=== PATIENT | male | born 1985 | race Caucasian/White ===

== ENCOUNTER 2019-11-01 11:49 | Outpatient (CLI) | payer OTHER, SELFPAY ==
[2019-11-01 13:13] LABS: Free T4 Free Thyroxine 0.97 ng/mL (0.78-2.19)
== END 2019-11-01 11:50 | disposition home or self-care (01) ==
PROVIDERS: PCP Emergency Medicine; Visit Provider Emergency Medicine
DX: R94.6 Abnormal results of thyroid function studies (principal)
CPT/HCPCS: 36415; 84439; 84443

== ENCOUNTER 2019-12-25 14:05 | Emergency (ER) | payer OTHER, SELFPAY ==
--- NOTE | ~2019-12-25 | XR_ITS ---
EXAMINATION: XR chest 1V portable INDICATION: Cough and fever TECHNIQUE: Portable AP chest at 1430 hours COMPARISON: 11/22/2019 FINDINGS: The lungs are free of acute opacities. There is no pleural effusion or pneumothorax. The ca rdiomediastinal silhouette is normal. The visualized bones and soft tissues are unremarkable. IMPRESSION: 1. No acute cardiopulmonary abnormality. Reviewed, dictated and finalized at location B.
[2019-12-25 14:15] VITALS: PULSE 164; RESP 16; TEMP 36.1; O2SAT 97
[2019-12-25 14:18] VITALS: BP 192/113
[2019-12-25 14:20] VITALS: PULSE 145
--- NOTE | 2019-12-25 14:22 | ECG_ITS ---
Measurements Intervals [place] Rate: 144 P: 3 MS: 131 QRS: -6 QRSD: 100 T: 31 QT: 282 QTc: 437 Interpretive Statements SINUS TACHYCARDIA INCOMPLETE RIGHT BUNDLE BRANCH BLOCK BORDERLINE R WAVE PROGRESSION, ANTERIOR LEADS ABNORMAL ECG Electronically Signed On 12-25-2019 14:36:47 CDT by Jason Badillo D.O.
--- NOTE | 2019-12-25 14:25 | ED.SOB ---
HPI - SOB/Dyspnea General Chief Complaint: Shortness of Breath/Dyspnea <Richard Marin PA-C - Last Filed: 12/25/19 15:51> Stated Complaint: cough, I feel hot <Richard Marin PA-C - Last Filed: 12/25/19 15:51> Time Seen by Provider: 12/25/19 14:07 <Richard Marin PA-C - Last Filed: 12/25/19 15:51> Source: patient <Richard Marin PA-C - Last Filed: 12/25/19 15:51> Mode of arrival: ambulatory <Richard Marin PA-C - Last Filed: 12/25/19 15:51> Limitations: no limitations <Richard Marin PA-C - Last Filed: 12/25/19 15:51> History of Present Illness HPI Narrative: Patient is a 34-year-old male who presents to emergency department for evaluation of cough congestion and not feeling well that is been present for 2 days was sent by primary care. 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 Patient denies vomiting diarrhea chest pain or dyspnea. Patient with history of hypertension thyroid disease and notes he has been compliant with his medications. Patient on arrival is in no distress. Patient has not taken anything for his symptoms <Richard Marin PA-C - Last Filed: 12/25/19 15:51> Related Data Home Medications: Home Medications Medication Instructions Recorded Confirmed amlodipine 12/25/19 levothyroxine 12/25/19 lisinopril 12/25/19 <Richard Marin PA-C - Last Filed: 12/25/19 15:51> Allergies/Adverse Reactions: Allergies Allergy/AdvReac Type Severity Reaction Status Date / Time No Known Allergies Allergy Verified 12/25/19 14:18 <Richard Mrain PA-C - Last Filed: 12/25/19 15:51> Review of Systems Review of Systems: All systems reviewed & are unremarkable except as noted in HPI and below <Richard Marin PA-C - Last Filed: 12/25/19 15:51> PMFSH Past Medical History Medical History: Medical History (Updated 12/25/19 @ 15:50 by Richard Marin PA-C) Hypertension Hypothyroidism Obesity <NORA Joyce Last Filed: 12/25/19 15:51> Family History Family History: Family History (System 11/22/19 @ 13:09 by January Lew) Grandparent Family history of pancreatic cancer Family history of thyroid disease Diabetes mellitus Mother Family history of thyroid disease Family history of multiple sclerosis Family history of lupus erythematosus Father Family history of alcoholism Family history of lupus erythematosus Other Hypertension <Richard Marin PA-C - Last Filed: 12/25/19 15:51> Social History Social History: Social History Smoking status: Never smoker Alcohol intake: current <Richard Marin PA-C - Last Filed: 12/25/19 15:51> Exam Narrative: Exam Narrative: GENERAL: Well-appearing, obese, and in no acute distress. HEAD: Normocephalic, atraumatic. EYES: PERRLA and EOMI. ENT: Nares clear, no rhinorrhea or epistaxis. Mucous membranes moist. Oropharynx without tonsillar hypertrophy exudate or other lesions. NECK: Supple. No adenopathy or masses. No carotid bruits or JVD CHEST: Clear to auscultation. No respiratory distress. No wheezes rales or rhonchi HEART: Tachycardic rate and regular rhythm. No murmur heard. Normal peripheral pulses. ABDOMEN: Soft, nontender, nondistended, normal active bowel sounds. EXTREMITIES: Normal range of motion. No edema. SKIN: Warm, dry, no rash. NEURO: No focal deficits. Alert and oriented x3. Cranial nerves II through XII grossly intact PSYCH: Normal mood and affect. <Richard Marin PA-C - Last Filed: 12/25/19 15:51> Course Course Emergency Course: Patient in the room at this time noting that he is feeling better noting that he wants to sign out AMA patient has been asked to stay given that he has findings concerning for dehydration and sepsis pulmonary embolism and that and leaving risks of patient notes that he has to leave to go meet his
[2019-12-25] MEDS: SODIUM CHLORIDE 0.9% IV 1,000 ML 999 ML IV CONT (14:38)
[2019-12-25 15:01] LABS: Hemoglobin 14.8 g/dL (14.0-18.0); Mean Corpuscular HGB Conc 32.9 g/dl (32-36); Mean Corpuscular Hemoglobin 28.5 pg (26-34); Mean Corpuscular Volume 86.7 fl (80-100); Platelet Count Result 499 k/mm3 (150-375); Red Blood Count 5.19 M/mm3 (4.6-6.20); Red Cell Distribution Width 14.3 % (11.5-14.5)
[2019-12-25 15:13] LABS: Lactic Acid Reflex 5.6 mmol/L (0.7-2.1)
[2019-12-25 15:15] LABS: Alanine Aminotransferase 56 U/L (4-50); Alkaline Phosphatase 89 U/L (38-126); Anion Gap 21.8 mmol/L (7-16); Aspartate Amino Transferase 57 U/L (17-59); Bilirubin,Total 0.2 mg/dL (0.2-1.3); Blood Urea Nitrogen 12 mg/dL (9-20); CRP < 0.5 mg/dL (<1.0); Carbon Dioxide 21 mmol/L (22-30); Chloride 107 mmol/L (98-107); Estimated CRCL calculation 151 ml/min; Estimated Glomerular Filt Rate > 60; Glucose 115 mg/dL (75-110); Lipase 69 U/L (23-300); Potassium 3.8 mmol/L (3.4-5.0); Sodium 146 mmol/L (137-145)
[2019-12-25 15:17] VITALS: TEMP 36.8
[2019-12-25 15:19] LABS: INR 1.1; Prothrombin Time 13.7 Seconds (11.1-14.7)
[2019-12-25 15:20] LABS: Partial Thromboplastin Time 26.2 SECONDS (22.3-36.8)
[2019-12-25 15:22] LABS: D Dimer 1.66 ug/mL (<0.48)
[2019-12-25 15:24] LABS: NT Pro B Type Natriuretic Pept 25 PG/ML (5-100); Troponin I < 0.012 ng/mL (0.000-0.034)
[2019-12-25 15:25] LABS: Monocytes Percent Manual 2 % (3-9); Neutrophils Percent Manual 52 % (46-73); Platelet Estimate Increased (Adequate); Total Cells Counted 100
--- NOTE | 2019-12-25 15:33 | PC.NURSE ---
Patient wishing to sign out AMASanthosh made aware
[2019-12-25 15:50] VITALS: PULSE 123; RESP 18; O2SAT 98
[2019-12-25 17:58] LABS: Reflex Lactic Acid Yes or No Add Lactic
== END 2019-12-25 15:52 | disposition left against medical advice (07) ==
PROVIDERS: Emergency Medicine Emergency Medical Services; Emergency Provider Emergency Medicine; PCP Emergency Medicine
DX: A41.9 Sepsis, unspecified organism (principal); E86.0 Dehydration; R79.89 Other specified abnormal findings of blood chemistry; I10 Essential (primary) hypertension; E03.9 Hypothyroidism, unspecified; E66.9 Obesity, unspecified; Z68.41 Body mass index [BMI] 40.0-44.9, adult; R00.0 Tachycardia, unspecified; I45.10 Unspecified right bundle-branch block; R94.31 Abnormal electrocardiogram [ECG] [EKG]; Z20.828 Contact with and (suspected) exposure to other viral communicable diseases
CPT/HCPCS: 36415; 71045; 80053; 83605; 83690; 83880; 84443; 84484; 85025; 85380; 85610; 85730; 86140; 87040; 93005; 96365; 99284; J0131; J7030

== ENCOUNTER 2019-12-29 20:58 | Inpatient (IN) | payer OTHER, SELFPAY ==
--- NOTE | ~2019-12-29 | US_ITS ---
EXAMINATION: US venous doppler LE EXAM DATE: 12/30/2019 13:32 INDICATION: Shortness of breath. TECHNIQUE: Multiple grayscale, color flow and Doppler images of the lower extremity deep venous syste ms bilaterally were obtained and reviewed. There is no prior study for comparison. FINDINGS: Right side: The right common femoral, femoral and profunda veins demonstrate normal color flow, respi ratory variation, augmentation and compressibility. Compressibility, color flow confirmed within the right popliteal, posterior tibial, peroneal, and greater saphenous veins. Left side: The left common femoral, femoral and profunda veins demonstrate normal color flow, respira tory variation, augmentation and compressibility. Compressibility, color flow confirmed within the l eft popliteal, posterior tibial, peroneal, and greater saphenous veins. IMPRESSION: 1. No lower extremity deep venous thrombosis bilaterally. Reviewed, dictated and finalized at location A.
--- NOTE | ~2019-12-29 | XR_ITS ---
EXAMINATION: XR chest 1V portable 12/29/2019 21:34 INDICATION: Shortness of breath and chest pain PROCEDURE: AP portable chest COMPARISON: Comparison to multiple prior studies sequentially, with oldest reviewed study dated 05/01. FINDINGS: The lungs are clear. The cardiomediastinal silhouette is within normal limits. There are no pleural effusions. There is no pneumothorax suspected. IMPRESSION: 1: NO ACUTE CARDIOPULMONARY DISEASE. Reviewed, dictated and finalized at location A.
--- NOTE | ~2019-12-29 | CT_ITS ---
EXAMINATION: CTA chest PE protocol DATE: 12/29/2019 22:55 CDT INDICATION: Shortness of breath. Chest pain. TECHNIQUE: Computed tomographic angiography (CTA) of the chest was performed with 100 mL Omnipaque-35 0 intravenous contrast. The dose-length product was 1078.65 mGy-cm. Maximum intensity projection 3D-r econstructions of the aorta and other arteries were constructed by the technologist on a separate wor kstation. Automated exposure control and iterative reconstruction technique were employed. COMPARISON: None. FINDINGS: The study is suboptimal for evaluation of peripheral pulmonary embolism due to contrast jamie us timing. No large central pulmonary embolism. Heart size normal. No significant pleural or pericard ial effusion. No thoracic lymphadenopathy. There is gynecomastia. No endobronchial lesions. No focal airspace consolidation. No pulmonary nodules or masses. Fatty infiltration of the liver. IMPRESSION: 1. No large central pulmonary embolism. Study limited for evaluation of peripheral pulmonary arteries . 2: No acute cardiopulmonary disease. Reviewed, dictated and finalized at location A. IMPRESSION: 1. No large central pulmonary embolism. Study limited for evaluation of periphe ral pulmonary arteries. 2: No acute cardiopulmonary disease.
[2019-12-29 20:56] VITALS: BP 145/109; PULSE 89; RESP 22; TEMP 35.6; O2SAT 96
--- NOTE | 2019-12-29 21:16 | ECG_ITS ---
Measurements Intervals [place] Rate: 129 P: 42 [place]: 144 QRS: 6 QRSD: 93 T: 34 QT: 306 QTc: 449 Interpretive Statements SINUS TACHYCARDIA ABNORMAL ECG Electronically Signed On 12-30-2019 6:50:22 CDT by Jason Badillo D.O.
[2019-12-29] MEDS: ONDANSETRON INJ 4 MG/2 ML VIAL (21:23)
[2019-12-29 21:26] VITALS: PULSE 138
[2019-12-29 21:28] LABS: Basophils Percent Auto 0.2 % (0.2-1.2); Eosinophils Percent Auto 0.1 % (0-4.4); Hematocrit 44.8 % (42.0-52.0); Hemoglobin 14.7 g/dL (14.0-18.0); Immature Granulocyte Absolute 0.03 K/mm3 (0.00-0.031); Immature Granulocyte Percent A 0.2 % (0-0.5); Lymphocytes Absolute Auto 0.79 K/mm3 (0.9-3.2); Lymphocytes Percent Auto 6.2 % (18.3-44.2); Mean Corpuscular HGB Conc 32.8 g/dl (32-36); Mean Corpuscular Hemoglobin 28.2 pg (26-34); Mean Corpuscular Volume 85.8 fl (80-100); Mean Platelet Volume 9.3 fl (7.4-10.4); Monocytes Absolute Auto 0.7 K/mm3 (0.1-0.6); Monocytes Percent Auto 5.1 % (2.6-8.5); Neutrophils Absolute Auto 11.2 K/mm3 (1.3-6.7); Neutrophils Percent Auto 88.2 % (45.5-73.1); Platelet Count Result 353 k/mm3 (150-375); Red Blood Count 5.22 M/mm3 (4.6-6.20); Red Cell Distribution Width 14.4 % (11.5-14.5); White Blood Count 12.7 K/mm3 (4.5-10.0)
--- NOTE | 2019-12-29 21:34 | ED.CHESTPAIN ---
HPI - Chest Pain General Chief Complaint: Chest Pain Stated Complaint: CP Time Seen by Provider: 12/29/19 21:17 Source: patient Mode of arrival: EMS History of Present Illness HPI narrative: This patient is 34 year old male with history of hypertension who presents for evaluation chest pain and shortness of breath. He was evaluated in ED 4 days ago for chest pain. He states he was told he has a PE but he left AMA. PAtient actually had an elevated d dimer and they wanted to perform CT and admit to hospital but patient refused. He returned today because 2 hours ago he developed crushing substernal chest pain with sob . EMS gave patient nitro glycer and ASA. Just after arrival patient became tachycardic and diaphoretic. He denies history of PE, DVT. Related Data Home Medications Medication Instructions Recorded Confirmed amlodipine 10 mg PO DAILY 12/25/19 12/30/19 levothyroxine 50 mcg PO DAILY 12/25/19 12/30/19 lisinopril 40 mg PO DAILY 12/25/19 12/30/19 Allergies Allergy/AdvReac Type Severity Reaction Status Date / Time No Known Allergies Allergy Verified 12/29/19 21:45 Review of Systems Review of Systems: All systems reviewed & are unremarkable except as noted in HPI and below Constitutional: Constitutional: Denies chills and Denies fever(s) Cardiovascular: Cardiovascular: Reports chest pain Respiratory: Respiratory: Denies cough, Reports dyspnea and Denies wheezing Gastrointestinal: Gastrointestinal: Denies abdominal pain, Denies nausea and Denies vomiting PMFSH Past Medical History Medical History Hypertension Hypothyroidism Obesity Family History Family History Grandparent Family history of pancreatic cancer Family history of thyroid disease Diabetes mellitus Mother Family history of thyroid disease Family history of multiple sclerosis Family history of lupus erythematosus Father Family history of alcoholism Family history of lupus erythematosus Other Hypertension Social History Social History Smoking status: Never smoker Second hand tobacco smoke exposure: Yes Alcohol intake: current Drinks per week: 2 Substance use: never Substance use type: does not use Spiritual care concerns: No Exam Const: General: alert, diaphoretic and ill appearing acutely Orientation/consciousness: patient oriented x3 HENMT: Head: normocephalic and atraumatic General nose exam: Normal nares present Face and sinus: face symmetric Mouth: Yes lip normal and Yes moist mucous membranes Throat: posterior oropharynx normal Eyes: Pupils: Equal, round and reactive pupils present EOM: EOMs intact bilaterally Chest: Chest palpation & inspection: normal inspection of the chest Resp: Effort & Inspection: normal respiratory effort and no retractions Auscultation: clear to auscultation bilaterally and no wheezes Cardio: Rate: tachycardic Rhythm: regular rhythm Heart sounds: no murmurs GI: GI Palp: Yes Soft to palpation, No Tenderness to palpation present (GI) and No Guarding due to palpation present (GI) Auscultation: normal bowel sounds Back/Spine/Pelvis: Back: no CVA tenderness Neuro: General: patient oriented x3 and moves all extremities Course Course Emergency Course: Patient presented to ER with chest, nausea and shortness of breath. He reported that he was diagnosed with PE but he signed out AMA 4 dyas ago. IN ER patient was diaphoretic, tachycardic and hypertensive. Patient was hydrated for tachycardia and lactic acidosis. A CTA was performed but no large PE seen. He continue to have chest pain and sob. No ischemia on EKG or elevated troponin. Patient admitted for further evaluation of metabolic acidosis and symptom. No infectious source found. Patient was given ativan and labetolol prior to admission. His
[2019-12-29] MEDS: ENOXAPARIN 120 MG/0.8 ML SYRINGE 130 MG SUB-Q (22:05)
[2019-12-29 22:08] LABS: INR 1.2; Prothrombin Time 14.6 Seconds (11.1-14.7)
[2019-12-29 22:29] LABS: Blood Urea Nitrogen 7 mg/dL (9-20); Calcium 8.3 mg/dL (8.4-10.2); Carbon Dioxide 9 mmol/L (22-30); Chloride 104 mmol/L (98-107); Estimated CRCL calculation 150 ml/min; Estimated Glomerular Filt Rate > 60; Glucose 136 mg/dL (75-110); Sodium 136 mmol/L (137-145)
[2019-12-29 22:41] LABS: NT Pro B Type Natriuretic Pept 26 PG/ML (5-100); Troponin I < 0.012 ng/mL (0.000-0.034)
[2019-12-29 23:11] LABS: Alveolar/Arterial O2 Gradient 57.9 mmHg; Base Excess ABG -13.3 mEq/l (+/-2.0); Carboxyhemoglobin 0.5 % THb (0-2.0); Fractional Inspired Oxygen 32 %; HCO3 ABG 11.2 mEq/l (22.0-26.0); Methemoglobin ABG 0.3 %THb (0-1.5); Oxygen Content ABG 20.1 %vol (16.0-22.0); Oxygen Saturation ABG 98.6 % (95.0-100.0); Oxyhemoglobin 97.3 % THb (90.0-100.0); PO2 ABG 142.4 mmHg (80.0-100.0); PO2 FiO2 Ratio Arterial Blood 4.45 %; Reduced Hemoglobin 1.9 %THb (0-5.0); Total Hemoglobin 14.5 g/dL (12.0-18.0); pH ABG 7.292 (7.350-7.450)
[2019-12-29 23:13] LABS: Device NASAL CANNULA; Modified Allen's Test Pass; PCO2 ABG 23.8 mmHg (35.0-45.0); Site Drawn LEFT RADIAL
[2019-12-29 23:24] LABS: Lactic Acid Reflex 3.9 mmol/L (0.7-2.1)
[2019-12-29] MEDS: PANTOPRAZOLE SODIUM IV 40 MG VIAL IV PUSH (23:25)
[2019-12-29] MEDS: ONDANSETRON INJ 4 MG/2 ML VIAL IV PUSH (23:25)
--- NOTE | 2019-12-29 23:32 | PC.NURSE ---
Called lab to add on Hepatic
[2019-12-29 23:43] LABS: Ethanol 76 mg/dL (<10)
[2019-12-29 23:57] LABS: Alanine Aminotransferase 75 U/L (4-50); Albumin Level 4.9 g/dL (3.5-5.1); Alkaline Phosphatase 75 U/L (38-126); Aspartate Amino Transferase 81 U/L (17-59); Bilirubin,Total 0.7 mg/dL (0.2-1.3); CRP < 0.5 mg/dL (<1.0)
[2019-12-30] VITALS (16 sets, daily range): BP systolic 157–191; BP diastolic 85–113; PULSE 76–118; RESP 16–22; TEMP 36.3–37.4; O2SAT 93–100; BMI 43.2
[2019-12-30 00:21] LABS: Amphetamine Screen Urine Negative (Negative); Barbiturate Screen Urine Negative (Negative); Benzodiazepines Screen Urine Negative (Negative); Cannabinoid Screen Urine Negative (Negative); Cocaine Screen Urine Negative (Negative); Methadone Screen Urine Negative (Negative); Opiate Screen Urine Negative (Negative); Phencyclidine Screen Urine Negative (Negative)
[2019-12-30 00:33] LABS: Add Urine Microscopic? YES; Appearance Urine Clear (Clear); Bilirubin Urine Negative (Negative); Blood Urine Negative (Negative); Color Urine Straw (Yellow); Glucose Urine UA Negative (Negative); Ketones Urine 2+ mg/dL (Negative); Leukocyte Esterase Ur Negative LEU/UL (Negative); Mucus Urine Rare /lpf; Nitrate Urine Negative (Negative); Protein Urine 3+ mg/dL (Negative); Squamous Epithelial Cell Urine Rare /hpf (Few); Urobilinogen Urine Negative mg/dL (<2.0); WBC Urine 0-3 /hpf
[2019-12-30 00:38] LABS: Specific Grav Ur 1.055 (1.001-1.035)
[2019-12-30] MEDS: LABETALOL HCL INJ 100 MG/20 ML VIAL 20 MG IV PUSH (00:39)
[2019-12-30 01:16] LABS: Lipase 107 U/L (23-300)
[2019-12-30 02:04] LABS: Troponin I 0.016 ng/mL (0.000-0.034)
[2019-12-30 02:06] LABS: Reflex Lactic Acid Yes or No Add Lactic
--- NOTE | 2019-12-30 02:35 | ADMGEN ---
This patient, Andrea Marte, was admitted to Intensive Care Unit-1 at 0205. Patient/family oriented to hospital policies and general routines including ID bracelet, bed and alarms, visiting hours, pain management, procedures, bathroom and other care routines, personal items, smoking policy, room service/diet, and visiting hours. Valuables list has been completed. Information on how to activate the Rapid Response Team has been discussed. Patient/Family are encouraged to report perceived risks to care and to ask questions if they do not understand what they are told or what they should do.
[2019-12-30 03:08] LABS: Lactic Acid 1.8 mmol/L (0.7-2.1)
--- NOTE | 2019-12-30 03:57 | PM.IMHP ---
H&P: HPI History of Present Illness Date/Time: 12/30/19 03:57 Chief complaint: uncontrolled hypertension, metabolic acidosis Narrative: This is a 34 year old male with known HTN and hypothyroidism who presented to the hospital earlier this evening with chest pain and shortness of breath. The patient has had ongoing shortness of breath for the past 5 days and was evaluated in the ER approximately 4 days ago and found to have an elevated lactic acid at that time. He signed out of the hospital AGAINST MEDICAL ADVICE at that time. Tonight he complains of nausea, vomiting, a sporadic nonproductive cough, midsternal chest pain and malaise. He doesn't think that he has had fever or chills. The patient believed that he was told four days ago that he had a PE. Tonight in the ER he underwent CTA Chest which was negative for any large acute pulmonary embolism. The patient was found to again have an elevated lactic acid which was initially 5.6. Routine labs demonstrated a metabolic acidosis with elevated anion gap. ABG demonstrated respiratory compensation. The patient was placed on oxygen in the ER and treated with 4 liters of NS IV and aspirin. Troponin have been negative x 3. On my encounter with the patient he continues to complain of nausea and malaise. He denies any sore throat, abdominal pain, dysuria, hematuria, rashes, diarrhea, open wounds or focal neurological symptoms. The patient works in our [employer] department but otherwise denies any sick contacts. The patient was swabbed for COVID-19 in the ER tonight. He denies any recent antibiotic use or new medications. No other complaints. Review of Systems Review of Systems: All systems reviewed & are unremarkable except as noted in HPI and below PMFSH Past Medical History Medical History Hypertension Hypothyroidism Obesity Family History Family History Grandparent Family history of pancreatic cancer Family history of thyroid disease Diabetes mellitus Mother Family history of thyroid disease Family history of multiple sclerosis Family history of lupus erythematosus Father Family history of alcoholism Family history of lupus erythematosus Other Hypertension Social History Social History Smoking status: Never smoker Second hand tobacco smoke exposure: Yes Alcohol intake: current Drinks per week: 2 Substance use: never Substance use type: does not use Spiritual care concerns: No Meds Home Medications and Allergies Home Medications Medication Instructions Recorded Confirmed Type amlodipine 10 mg PO DAILY 12/25/19 12/30/19 History levothyroxine 50 mcg PO DAILY 12/25/19 12/30/19 History lisinopril 40 mg PO DAILY 12/25/19 12/30/19 History Allergies Allergy/AdvReac Type Severity Reaction Status Date / Time No Known Allergies Allergy Verified 12/29/19 21:45 Vital Signs Vital Signs - 24 hr 12/29/19 20:56 12/29/19 21:26 12/30/19 00:39 Temperature 35.6 C L Pulse Rate 89 138 H 111 H Respiratory Rate 22 H Blood Pressure 145/109 H 191/113 H Pulse Oximetry 96 12/30/19 02:19 12/30/19 02:20 12/30/19 02:36 Temperature 37.4 C Pulse Rate 95 99 107 H Respiratory Rate 18 19 Blood Pressure 170/95 H 164/98 H Pulse Oximetry 100 97 12/30/19 03:46 Temperature Pulse Rate 103 H Respiratory Rate 19 Blood Pressure 188/109 H Pulse Oximetry 98 Exam Const: General: cooperative, awake, diaphoretic, ill appearing, tired appearing and uncomfortable Nutritional Appearance: obese morbidly obese Orientation/consciousness: oriented to person HENMT: Head: normal to inspection General nose exam: Normal external nose present Face and sinus: normal facial exam Mouth: Yes Normal oral and palatal mucosa present and Yes oropharynx normal Eyes: Pupils: Equal, round a
[2019-12-30 05:11] LABS: Basophils Percent Auto 0.1 % (0.2-1.2); Hematocrit 36.3 % (42.0-52.0); Hemoglobin 11.9 g/dL (14.0-18.0); Immature Granulocyte Absolute 0.04 K/mm3 (0.00-0.031); Immature Granulocyte Percent A 0.4 % (0-0.5); Lymphocytes Absolute Auto 1.11 K/mm3 (0.9-3.2); Lymphocytes Percent Auto 11.7 % (18.3-44.2); Mean Corpuscular HGB Conc 32.8 g/dl (32-36); Mean Corpuscular Hemoglobin 28.4 pg (26-34); Mean Corpuscular Volume 86.6 fl (80-100); Mean Platelet Volume 8.7 fl (7.4-10.4); Monocytes Absolute Auto 0.8 K/mm3 (0.1-0.6); Monocytes Percent Auto 8.4 % (2.6-8.5); Neutrophils Absolute Auto 7.5 K/mm3 (1.3-6.7); Neutrophils Percent Auto 79.4 % (45.5-73.1); Platelet Count Result 202 k/mm3 (150-375); Red Blood Count 4.19 M/mm3 (4.6-6.20); Red Cell Distribution Width 14.5 % (11.5-14.5); White Blood Count 9.5 K/mm3 (4.5-10.0)
[2019-12-30] MEDS: hydrALAZINE HCL 20 MG/ML VIAL 10 MG IV PUSH ×2 (05:14→14:23)
[2019-12-30] MEDS: SODIUM CHLORIDE 0.9% IV 1,000 ML 100 ML IV CONT ×2 (05:14→14:23)
[2019-12-30 05:23] LABS: Anion Gap 20.5 mmol/L (7-16); Blood Urea Nitrogen 4 mg/dL (9-20); Calcium 7.5 mg/dL (8.4-10.2); Carbon Dioxide 11 mmol/L (22-30); Chloride 110 mmol/L (98-107); Estimated CRCL calculation 169 ml/min; Estimated Glomerular Filt Rate > 60; Glucose 97 mg/dL (75-110); Magnesium 1.7 mg/dL (1.6-2.3); Potassium 3.5 mmol/L (3.4-5.0); Sodium 138 mmol/L (137-145)
[2019-12-30 05:35] LABS: Troponin I 0.021 ng/mL (0.000-0.034)
[2019-12-30] MEDS: LEVOTHYROXINE SODIUM 50 MCG TABLET PO (06:56)
[2019-12-30] MEDS: amLODIPine BESYLATE 5 MG TABLET 10 MG PO (08:01)
[2019-12-30] MEDS: lisinopriL 20 MG TABLET 40 MG PO (08:02)
[2019-12-30 12:44] LABS: Anion Gap 19.6 mmol/L (7-16); Blood Urea Nitrogen 5 mg/dL (9-20); Calcium 8.5 mg/dL (8.4-10.2); Carbon Dioxide 14 mmol/L (22-30); Chloride 108 mmol/L (98-107); Estimated CRCL calculation 170 ml/min; Estimated Glomerular Filt Rate > 60; Glucose 96 mg/dL (75-110); Potassium 3.6 mmol/L (3.4-5.0); Sodium 138 mmol/L (137-145)
[2019-12-30 13:10] LABS: Beta-Hydroxybutyrate/Acetoacetate 5.96 mmol/L (0.02-0.27)
[2019-12-30] MEDS: THIAMINE HCL 200 MG/2 ML VIAL 100 MG IV PUSH (14:23)
--- NOTE | 2019-12-30 14:53 | PM.IMPN ---
Progress Note: A&P Assessment and Plan (1) Severe sepsis: Code(s): A41.9 - Sepsis, unspecified organism; R65.20 - Severe sepsis without septic shock Status: Acute Assessment and Plan: May be secondary to a viral syndrome and dehydration. Lactic acid has improved with hydration in the ER. There is no clear source of sepsis at this time. Blood and urine cultures pending. continue IV hydration . Antipyretics and antiemetics as needed. patient's brother relates that he has been heavy consumer of alcohol and beta hydroxybutyrate is elevated and could be having along with an lactic acidosis some alcoholic ketoacidosis. continue aggressive hydration (2) Uncontrolled hypertension: Code(s): I10 - Essential (primary) hypertension Status: Acute Assessment and Plan: BP assessed again 12/29 Monitor blood pressure. PRN IV hydralazine w/ paramaters. Continue home oral anithypertensives. amlodipine and lisinopril and add metoprolol 25 Q 12 (3) Chest pain: Code(s): R07.9 - Chest pain, unspecified Status: Acute Assessment and Plan: r/o ACS vs. pleuritic pain from coughing - troponins negative. and CTA no abnormalities (4) Dyspnea: Qualifiers: Dyspnea type: unspecified Qualified Code(s): R06.00 - Dyspnea, unspecified Code(s): R06.00 - Dyspnea, unspecified Status: Acute Assessment and Plan: Appears to be compensatory as the patient has a respiratory alkalosis which is to be expected given the patient's metabolic acidosis w/ elevated anion gap. Continue supplemental oxygen. Wean off of oxygen as tolerated. (5) Leukocytosis: Code(s): D72.829 - Elevated white blood cell count, unspecified Status: Acute Assessment and Plan: Mild leukocytosis is likely secondary to a viral syndrome vs. wretching? repeat in a.m. (6) Hypothyroidism: Qualifiers: Hypothyroidism type: unspecified Qualified Code(s): E03.9 - Hypothyroidism, unspecified Code(s): E03.9 - Hypothyroidism, unspecified Status: Chronic Assessment and Plan: Continue levothyroxine PO. (7) Suspected 2019 novel coronavirus infection: Code(s): Z20.828 - Contact with and (suspected) exposure to other viral communicable diseases Status: Acute Assessment and Plan: The patient was swabbed in the ER for COVID-19. Continue droplet isolation. Supportive care but doubt COVID infection with no infiltrate on CT scan and no hypoxia or fever (8) History of ETOH abuse: Code(s): F10.11 - Alcohol abuse, in remission Status: Acute Assessment and Plan: continue aggressive hydration, thiamin, and watch for any signs of withdrawal Subjective Date/time seen: 12/30/19 14:53 Interval history: date of visit 12/29. 34-year-old hypertensive male presented to ER with nausea and vomiting chest abdominal pain. Found to have lactic acidosis with presently hydrated and admitted. he complained of shortness of breath and was found to be tachypneic from his respiratory alkalosis compensating for his metabolic acidosis. has CO2 has slowly risen his respiratory rate has declined and feeling better though still nauseated and no appetite Exam Narrative: Exam Narrative: blood pressure 180/100 pulse is 104 respirations 18 per minute saturating 100% on 1 L nasal cannula afebrile pupils equal reactive light sclera anicteric lungs clear abdomen soft nontender bowel sounds are normal active obese extremities without edema distal pulses are 2+ neuro alert cooperative no focal deficits psych affect flat Objective Data Vital Signs Vital Signs: Vital Signs - 24 hr 12/29/19 20:56 12/29/19 21:26 12/30/19 00:39 Temperature 35.6 C L Pulse Rate 89 138 H 111 H Respiratory Rate 22 H Blood Pressure 145/109 H 191/113 H Pulse Oximetry 96 12/30/19 02:19 12/30/19 02:20 12/30/19 02:36 Temperature 37.4 C Pulse Rate 95 99 107 H Respirato
[2019-12-30] MEDS: METOPROLOL TARTRATE 25 MG TABLET PO ×2 (15:45→20:19)
[2019-12-30 18:31] LABS: SARS-CoV-2 RNA PCR Negative
[2019-12-30] MEDS: ENOXAPARIN 40 MG/0.4 ML SYRINGE SUB-Q (20:18)
[2019-12-30] MEDS: PANTOPRAZOLE 40 MG TABLET PO (20:19)
--- NOTE | 2019-12-30 21:09 | PC.NURSE ---
This patient, Andrea Marte, was transferred to [room 253 ] on 12/30/19 at 2109. Personal belongings sent with patient. Belongings list checked and signed with receiving [unit ]. Report given to [ESTRELLA Hill ]. Appropriate documentation sent with patient.
[2019-12-30] MEDS: SODIUM CHLORIDE 0.9% IV 1,000 ML 125 ML IV CONT (22:09)
--- NOTE | 2019-12-30 22:25 | PC.NURSE ---
This patient, Andrea Marte, was received from ICU on 12/30/19 at 2125. Report called at 2105 by ESTRELLA Mcmullen. Personal belongings and medications received. Patient/family oriented to unit policies and routines
[2019-12-31] VITALS (12 sets, daily range): BP systolic 127–165; BP diastolic 66–96; PULSE 73–114; RESP 16–20; TEMP 36.1–36.7; O2SAT 97–100
[2019-12-31] MEDS: LEVOTHYROXINE SODIUM 50 MCG TABLET PO (06:19)
[2019-12-31] MEDS: SODIUM CHLORIDE 0.9% IV 1,000 ML 125 ML IV CONT ×3 (06:20→21:58)
[2019-12-31 07:40] LABS: Alanine Aminotransferase 56 U/L (4-50); Albumin Level 4.2 g/dL (3.5-5.1); Alkaline Phosphatase 59 U/L (38-126); Anion Gap 14.7 mmol/L (7-16); Aspartate Amino Transferase 65 U/L (17-59); Bilirubin,Total 1.1 mg/dL (0.2-1.3); Blood Urea Nitrogen 4 mg/dL (9-20); Calcium 8.6 mg/dL (8.4-10.2); Carbon Dioxide 20 mmol/L (22-30); Chloride 102 mmol/L (98-107); Estimated CRCL calculation 199 ml/min; Estimated Glomerular Filt Rate > 60; Glucose 111 mg/dL (75-110); Magnesium 1.6 mg/dL (1.6-2.3); Potassium 2.7 mmol/L (3.4-5.0); Sodium 134 mmol/L (137-145)
[2019-12-31 07:41] LABS: Basophils Percent Auto 0.3 % (0.2-1.2); Eosinophils Percent Auto 0.2 % (0-4.4); Hematocrit 38.4 % (42.0-52.0); Hemoglobin 13.1 g/dL (14.0-18.0); Immature Granulocyte Absolute 0.02 K/mm3 (0.00-0.031); Immature Granulocyte Percent A 0.3 % (0-0.5); Lymphocytes Percent Auto 24.3 % (18.3-44.2); Mean Corpuscular HGB Conc 34.1 g/dl (32-36); Mean Corpuscular Hemoglobin 28.9 pg (26-34); Mean Corpuscular Volume 84.8 fl (80-100); Mean Platelet Volume 9.5 fl (7.4-10.4); Monocytes Absolute Auto 0.4 K/mm3 (0.1-0.6); Monocytes Percent Auto 6.4 % (2.6-8.5); Neutrophils Absolute Auto 4.5 K/mm3 (1.3-6.7); Neutrophils Percent Auto 68.5 % (45.5-73.1); Platelet Count Result 167 k/mm3 (150-375); Red Blood Count 4.53 M/mm3 (4.6-6.20); Red Cell Distribution Width 14.4 % (11.5-14.5); White Blood Count 6.6 K/mm3 (4.5-10.0)
[2019-12-31] MEDS: ENOXAPARIN 40 MG/0.4 ML SYRINGE SUB-Q ×2 (08:20→20:16)
[2019-12-31] MEDS: THIAMINE HCL 200 MG/2 ML VIAL 100 MG IV PUSH (08:20)
[2019-12-31 08:21] LABS: Phosphorus < 1.0 mg/dL (2.5-4.5)
[2019-12-31] MEDS: POTASSIUM CHLORIDE 20 MEQ TABLET 40 MEQ PO (08:21)
[2019-12-31] MEDS: lisinopriL 20 MG TABLET 40 MG PO (08:21)
[2019-12-31] MEDS: PANTOPRAZOLE 40 MG TABLET PO ×2 (08:22→20:16)
[2019-12-31] MEDS: METOPROLOL TARTRATE 25 MG TABLET PO ×2 (08:22→20:16)
[2019-12-31] MEDS: amLODIPine BESYLATE 5 MG TABLET 10 MG PO (08:22)
[2019-12-31 08:32] LABS: Beta-Hydroxybutyrate/Acetoacetate 2.64 mmol/L (0.02-0.27)
[2019-12-31] MEDS: POTASSIUM/PHOSPHORUS/SODIUM 1.5 GM PACKET 1 PACKET PO ×2 (10:43→17:47)
[2019-12-31] MEDS: POTASSIUM PHOS,M-BASIC-D-BASIC 20 MMOL in SODIUM CHLORIDE 0.9% IV 250 ML 64 MMOL IVPB ×2 (13:48→17:47)
--- NOTE | 2019-12-31 14:30 | PM.IMPN ---
Progress Note: A&P Assessment and Plan (1) Severe sepsis: Code(s): A41.9 - Sepsis, unspecified organism; R65.20 - Severe sepsis without septic shock Status: Acute Assessment and Plan: May be secondary to a viral syndrome and dehydration. Lactic acid improved with hydration in the ER. There is no clear source of sepsis at this time. Blood and urine cultures neg. continue IV hydration . Antipyretics and antiemetics as needed. patient's brother relates that he has been heavy consumer of alcohol and beta hydroxybutyrate is elevated and could be having along with an lactic acidosis some alcoholic ketoacidosis. continue aggressive hydration (2) Uncontrolled hypertension: Code(s): I10 - Essential (primary) hypertension Status: Acute Assessment and Plan: BP assessed again 12/30 Monitor blood pressure. PRN IV hydralazine w/ paramaters. Continue home oral anithypertensives. amlodipine and lisinopril and added metoprolol 25 Q 12 12/29 with good results (3) Chest pain: Code(s): R07.9 - Chest pain, unspecified Status: Acute Assessment and Plan: probable chest wall - troponins negative. and CTA no abnormalities (4) Dyspnea: Qualifiers: Dyspnea type: unspecified Qualified Code(s): R06.00 - Dyspnea, unspecified Code(s): R06.00 - Dyspnea, unspecified Status: Acute Assessment and Plan: Appears to be compensatory as the patient has a respiratory alkalosis which is to be expected given the patient's metabolic acidosis w/ elevated anion gap. Continue supplemental oxygen. Wean off of oxygen as tolerated. (5) Leukocytosis: Code(s): D72.829 - Elevated white blood cell count, unspecified Status: Acute Assessment and Plan: Mild leukocytosis is likely secondary to a viral syndrome vs. wretching? and normal today 12/30 (6) Hypothyroidism: Qualifiers: Hypothyroidism type: unspecified Qualified Code(s): E03.9 - Hypothyroidism, unspecified Code(s): E03.9 - Hypothyroidism, unspecified Status: Chronic Assessment and Plan: Continue levothyroxine PO. (7) Suspected 2019 novel coronavirus infection: Code(s): Z20.828 - Contact with and (suspected) exposure to other viral communicable diseases Status: Acute Assessment and Plan: The patient was swabbed in the ER for COVID-19. and found neg as expected (8) History of ETOH abuse: Code(s): F10.11 - Alcohol abuse, in remission Status: Acute Assessment and Plan: continue aggressive hydration, thiamin, and no any signs of withdrawal PRN ativan Subjective Date/time seen: 12/31/19 14:30 Interval history: date of visit 12/30. 34-year-old hypertensive male presented to ER with nausea and vomiting chest abdominal pain. Found to have lactic acidosis with presently hydrated and admitted. he complained of shortness of breath and was found to be tachypneic from his respiratory alkalosis compensating for his metabolic acidosis. has CO2 has slowly risen his respiratory rate has declined and feeling better and ready to try to eat Exam Narrative: Exam Narrative: blood pressure 128/66 pulse is 74 respirations 16 per minute saturating 100% on RA afebrile pupils equal reactive light sclera anicteric lungs clear abdomen soft nontender bowel sounds are normal active obese extremities without edema distal pulses are 2+ neuro alert cooperative no focal deficits psych affect flat Objective Data Vital Signs Vital Signs: Vital Signs - 24 hr 12/30/19 15:39 12/30/19 15:45 12/30/19 16:00 Temperature 36.3 C L Pulse Rate 106 H 118 H 97 Respiratory Rate 20 Blood Pressure 180/90 H Pulse Oximetry 97 12/30/19 17:56 12/30/19 20:00 12/30/19 20:19 Temperature 36.9 C Pulse Rate 76 77 84 Respiratory Rate 16 Blood Pressure 160/94 H Pulse Oximetry 93 12/30/19 21:39 12/31/19 00:01 12/31/19 04:00 Temperature 36.6 C 36.
--- NOTE | 2019-12-31 16:30 | ECG_ITS ---
Measurements Intervals [place] Rate: 74 P: 14 SD: 149 QRS: 5 QRSD: 93 T: 6 QT: 396 QTc: 442 Interpretive Statements SINUS RHYTHM ST ELEVATION IN DIFFUSE LEADS- CONSIDER EARLY REPOLARIZATION, PERICARDITIS OR INJURY ABNORMAL ECG Electronically Signed On 12-31-2019 17:14:57 CDT by Jason Badillo D.O.
[2019-12-31 17:10] LABS: Glucose Point of Care 114 (65-105)
--- NOTE | 2019-12-31 18:00 | PC.NURSE ---
16:30 pt was in the bathroom having a BM and his heart rate went up to 140-150 beats/min. while checking on pt ,he C/O a headache was confused at first and was sweating,assisted back to bed. Vitals =BP168/92 P=81 R=22 T=98. Blood smsaf=804. Called Dr. Franklin to see the him. Ordered a stat EKG. Denies chest pain or shortness of breath.
[2019-12-31] MEDS: LORazepam 0.5 MG TABLET PO (20:16)
[2020-01-01] VITALS: BP 152/82; PULSE 82; PULSE 88; RESP 18; TEMP 36.7; O2SAT 98
[2020-01-01 04:00] VITALS: BP 150/92; PULSE 109; PULSE 88; RESP 16; TEMP 36.8; O2SAT 99
[2020-01-01 05:45] LABS: Anion Gap 13.2 mmol/L (7-16); Blood Urea Nitrogen 5 mg/dL (9-20); Calcium 8.4 mg/dL (8.4-10.2); Carbon Dioxide 24 mmol/L (22-30); Chloride 101 mmol/L (98-107); Estimated CRCL calculation 199 ml/min; Estimated Glomerular Filt Rate > 60; Glucose 78 mg/dL (75-110); Phosphorus 1.8 mg/dL (2.5-4.5); Potassium 3.2 mmol/L (3.4-5.0); Sodium 135 mmol/L (137-145)
[2020-01-01] MEDS: LEVOTHYROXINE SODIUM 50 MCG TABLET PO (06:29)
[2020-01-01 07:31] LABS: Hepatitis B Surface Antigen Negative (Negative)
[2020-01-01 07:37] LABS: HAV RESULT Negative (Negative); Hepatitis B Core IgM Result Negative (Negative)
[2020-01-01 07:48] LABS: Hepatitis C Virus Antibody Negative (Negative)
[2020-01-01 08:00] VITALS: PULSE 142
[2020-01-01 08:24] VITALS: PULSE 121
[2020-01-01] MEDS: METOPROLOL SUCCINATE EXT REL 50 MG TABCR PO (08:24)
[2020-01-01] MEDS: PANTOPRAZOLE 40 MG TABLET PO (08:24)
[2020-01-01] MEDS: POTASSIUM/PHOSPHORUS/SODIUM 1.5 GM PACKET 1 PACKET PO (08:24)
[2020-01-01] MEDS: POTASSIUM CHLORIDE 20 MEQ TABLET 40 MEQ PO (08:24)
[2020-01-01] MEDS: amLODIPine BESYLATE 5 MG TABLET 10 MG PO (08:25)
[2020-01-01] MEDS: lisinopriL 20 MG TABLET 40 MG PO (08:25)
[2020-01-01] MEDS: ENOXAPARIN 40 MG/0.4 ML SYRINGE SUB-Q (08:25)
[2020-01-01] MEDS: POTASSIUM PHOS,M-BASIC-D-BASIC 20 MMOL in SODIUM CHLORIDE 0.9% IV 250 ML 62.5 MMOL IVPB (08:41)
[2020-01-01] MEDS: SODIUM CHLORIDE 0.9% IV 1,000 ML 125 ML IV CONT (08:41)
[2020-01-01] MEDS: THIAMINE HCL 200 MG/2 ML VIAL 100 MG IV PUSH (08:41)
[2020-01-01 10:00] VITALS: BP 139/82; PULSE 104; RESP 16; TEMP 36.5; O2SAT 97
--- NOTE | 2020-01-01 15:46 | PCCCNOTE ---
On 01/01/20, the student, [ Violeta Loredo], provided care and completed [facility] documentation on this patient. I have reviewed the student's documentation and agree with the findings.
--- NOTE | 2020-01-06 07:54 | PM.DS ---
DS: Admitting Diagnosis Admitting Diagnosis Admitting Diagnosis: Sepsis, unspecified organism DS: Discharge Diagnosis Discharge Diagnosis (1) Severe sepsis: Code(s): A41.9 - Sepsis, unspecified organism; R65.20 - Severe sepsis without septic shock Status: Acute Assessment and Plan: secondary to a viral syndrome and dehydration. Lactic acid improved with hydration in the ER. There is no clear bacterial source of sepsis . Blood and urine cultures neg. . . patient's brother relates that he has been heavy consumer of alcohol and beta hydroxybutyrate is elevated and probably had along with an lactic acidosis some alcoholic ketoacidosis. He responded to aggressive hydration (2) Uncontrolled hypertension: Code(s): I10 - Essential (primary) hypertension Status: Acute Assessment and Plan: . Continued home oral anithypertensives. amlodipine and lisinopril and added metoprolol XL 50 and at discharge systolic bp 140, better but still slightly elevated (3) Chest pain: Code(s): R07.9 - Chest pain, unspecified Status: Acute Assessment and Plan: chest wall - troponins negative. and CTA no abnormalities (4) Dyspnea: Qualifiers: Dyspnea type: unspecified Qualified Code(s): R06.00 - Dyspnea, unspecified Code(s): R06.00 - Dyspnea, unspecified Status: Acute Assessment and Plan: compensatory as the patient had a respiratory alkalosis which is to be expected given the patient's metabolic acidosis w/ elevated anion gap. was not hypoxic any time (5) Leukocytosis: Code(s): D72.829 - Elevated white blood cell count, unspecified Status: Acute Assessment and Plan: Mild leukocytosis secondary to a viral syndrome vs. wretching? and normal 12/30 (6) Hypothyroidism: Qualifiers: Hypothyroidism type: unspecified Qualified Code(s): E03.9 - Hypothyroidism, unspecified Code(s): E03.9 - Hypothyroidism, unspecified Status: Chronic Assessment and Plan: Continue levothyroxine PO. (7) History of ETOH abuse: Code(s): F10.11 - Alcohol abuse, in remission Status: Acute Assessment and Plan: continued aggressive hydration, thiamin, and no signs of withdrawal. had mild elevation of LFTs also with negative hepatitis profile may need further evaluation as outpatient DS: Summary Hospital Course Hospital Course: 34-year-old white male hypertension admitted with complaints of shortness of breath nausea and vomiting. Was found to have metabolic acidosis with hypokalemia and hypophosphatemia. Lactic acid MP today hydroxybutyrate were both elevated. With hydration acidosis resolved as did nausea and vomiting. Lactic acidosis was thought to be due to the nausea and vomiting and probably had some degree of alcoholic ketoacidosis. Shortness of breath was compensatory hyperventilation resulted in respiratory alkalosis for his metabolic acidosis. Discharge he was up about feeling much better after hydration and electrolyte replacement Toprol XL 50 was added to his blood pressure regime Time Spent with Patient Time attestation: Total time spent providing and/or coordinating discharge services:35 minutes Exam Narrative: Exam Narrative: Condition on discharge blood pressure 140/82 pulse is 100 saturating 97% on room air afebrile lungs clear CV regular but tachy and no murmurs abdomen soft nontender no masses extremities without edema distal pulses are 2+ he was taking a normal diet without any nausea or abdominal pain Discharge Plan Discharge Attending physician on discharge: Laith Franklin Consulting providers: Anival Enrique ; King Maldonado ; Jason Badillo Discharging Clinician: Laith Franklin Patient Disposition: Home, Self-Care Activity: as tolerated Diet: low sodium Patient Instructions: Antibiotic Form, Chest Pain (DC), How to Stop Smoking (DC), Chronic Hyperte
== END 2020-01-01 12:57 | disposition home or self-care (01) | DRG 723 ==
LOC: ANHED 12-30 00:54 → ANHICU 12-30 00:56 → ANH2MED 01-01 09:08 → ANHICU 01-03 09:55
PROVIDERS: Admitting Provider Family Medicine; Emergency Provider General Practice; PCP Emergency Medicine; Visit Provider Internal Medicine
DX: B34.9 Viral infection, unspecified (principal); E87.2 Acidosis; E86.0 Dehydration; E83.39 Other disorders of phosphorus metabolism; E87.6 Hypokalemia; R07.89 Other chest pain; I10 Essential (primary) hypertension; R06.4 Hyperventilation; D72.829 Elevated white blood cell count, unspecified; E03.9 Hypothyroidism, unspecified; F10.11 Alcohol abuse, in remission; Z20.828 Contact with and (suspected) exposure to other viral communicable diseases; Z79.899 Other long term (current) drug therapy
CPT/HCPCS: 36415; 36600; 71045; 71275; 80048; 80069; 80074; 80076; 80307; 81001; 82010; 82375; 82805; 83050; 83605; 83690; 83735; 83880; 84100; 84484; 85025; 85610; 85730; 86140; 87040; 87635; 93005; 93970; 96361; 96372; 96374; 96375; 96376; 99291; A9270; C9113; C9803; G0378; G0379; J0360; J1650; J2060; J2405; J3411; J3480; J7030; J7050; Q9967; U0003

== ENCOUNTER 2020-05-07 06:57 | Outpatient (NON) | payer OTHER, SELFPAY ==
[2020-05-08 14:22] LABS: SARS-CoV-2 RNA PCR Negative
== END 2020-05-07 06:58 ==
PROVIDERS: PCP Physician Assistant; Visit Provider Physician Assistant
DX: Z20.828 Contact with and (suspected) exposure to other viral communicable diseases (principal)
CPT/HCPCS: 87635; C9803; U0003

== ENCOUNTER 2020-09-28 18:27 | Emergency (ER) | payer OTHER, SELFPAY ==
--- NOTE | 2020-09-28 18:37 | ED.GENADULT ---
HPI - General Adult General Chief complaint: Nausea/Vomiting/Diarrhea Stated complaint: Throwing Up Time Seen by Provider: 09/28/20 18:37 Source: patient Mode of arrival: ambulatory Limitations: no limitations History of Present Illness HPI narrative: 35-year-old male patient presents to the [facility] with complaints of vomiting and epigastric pain. Patient states the vomiting started yesterday. Patient states he has been diagnosed with GERD before in the past and was taking Zantac until they had recalled it. Patient states is been months since he has been on any daily medication. Patient states he typically wakes up with heartburn every morning but does get it to subside by eating. Patient states this past week he has gotten increasingly worse and states that he is scheduled to have an EGD on Wednesday. Patient states he started vomiting yesterday and has not really been able to stop or keep anything down. Denies fevers, body aches or chills. Denies any abdominal pain. Patient denies any diarrhea. Related Data Home Medications Medication Instructions Recorded Confirmed amlodipine 10 mg PO DAILY 12/25/19 12/30/19 levothyroxine 50 mcg PO DAILY 12/25/19 12/30/19 lisinopril 40 mg PO DAILY 12/25/19 12/30/19 Allergies Allergy/AdvReac Type Severity Reaction Status Date / Time No Known Allergies Allergy Verified 09/28/20 19:03 Review of Systems Review of Systems: Narrative: CONSTITUTIONAL: Denies fever, chills, or sweats. EYES: Denies visual changes, redness, or discharge. ENT: Denies rhinorrhea, congestion, sore throat, or otalgia. CARDIOVASCULAR: Denies chest pain, palpitations, or edema. RESPIRATORY: Denies cough or dyspnea. GASTROINTESTINAL: Positive epigastric pain, nausea, positive vomiting, denies diarrhea. GENITOURINARY: Denies dysuria or hematuria. SKIN: Denies rash or itching. MUSCULOSKELETAL: Denies back pain, joint pain, or myalgia. NEUROLOGIC: Denies headache, numbness, or weakness. PSYCHIATRIC: Denies anxiety or depression. [facility] Past Medical History Medical History (Updated 09/28/20 @ 19:40 by BRANDEE Hawkins) Hypertension Hypothyroidism Obesity Family History Family History Grandparent Family history of pancreatic cancer Family history of thyroid disease Diabetes mellitus Mother Family history of thyroid disease Family history of multiple sclerosis Family history of lupus erythematosus Father Family history of alcoholism Family history of lupus erythematosus Other Hypertension Social History Social History Smoking status: Never smoker Second hand tobacco smoke exposure: Yes Alcohol intake: current Drinks per week: 2 Substance use: never Substance use type: does not use Spiritual care concerns: No Comments At the time of my signature I agree with nursing past medical history, surgical, social, and family history. There is no relevant family history pertinent to the presenting complaint. Exam Narrative: Exam Narrative: GENERAL: Well-appearing, well-nourished, and in no acute distress. HEAD: Normocephalic, atraumatic. EYES: PERRLA and EOMI. ENT: Nares clear, no rhinorrhea or epistaxis. Mucous membranes moist. Bilateral TMs are clear no erythema or foreign bodies the canal appears clear pharynx with no erythema, tonsillar Jocelyn, exudates or lesions present. NECK: Supple. No lymphadenopathy CHEST: Clear to auscultation. No respiratory distress. HEART: Regular rate and rhythm. No murmur heard. Normal peripheral pulses. ABDOMEN: Unable to assess patient's abdomen at this time due to active vomiting. EXTREMITIES: Normal range of motion. No edema. SKIN: Warm, dry, no rash. NEURO: No focal deficits. Alert and oriented x3. Course Reevaluation(s) Reevaluation #1: Reevaluated patient after giving her medications to help with the vomiting. Patient has not
[2020-09-28 18:43] VITALS: BP 180/116; PULSE 134; RESP 18; TEMP 37.4; O2SAT 96
[2020-09-28 18:50] VITALS: BP 182/140; PULSE 142
[2020-09-28] MEDS: ONDANSETRON HCL ODT 4 MG TABLET PO (19:00)
[2020-09-28] MEDS: LIDOCAINE HCL 2% VISC SOLN 15 ML UDC PO (19:21)
[2020-09-28] MEDS: MAG HYDROX/AL HYDROX/SIMETH 30 ML UDC PO (19:21)
[2020-09-28 19:47] VITALS: BP 184/120; PULSE 122
== END 2020-09-28 19:47 | disposition home or self-care (01) ==
PROVIDERS: Emergency Provider Nurse Practitioner Family
DX: K21.9 Gastro-esophageal reflux disease without esophagitis (principal); R11.2 Nausea with vomiting, unspecified; I10 Essential (primary) hypertension; E03.9 Hypothyroidism, unspecified; E66.9 Obesity, unspecified; Z68.41 Body mass index [BMI] 40.0-44.9, adult
CPT/HCPCS: 99213; A9270; G0463

== ENCOUNTER 2020-10-15 13:31 | Emergency (ER) | payer OTHER, SELFPAY ==
[2020-10-15 13:40] VITALS: BP 186/127; PULSE 137; RESP 18; TEMP 36.3; O2SAT 96
--- NOTE | 2020-10-15 15:52 | PC.NURSE ---
1335-Pt observed to be having dry heaves in registration area and where small amount (less than 20ml) foamy emesis observed in emesis bag. No tahira blood noted.
== END 2020-10-15 14:15 | disposition left against medical advice (07) ==
PROVIDERS: Emergency Provider Internal Medicine Hematology & Oncology
DX: Z53.21 Procedure and treatment not carried out due to patient leaving prior to being seen by health care provider (principal)
CPT/HCPCS: 99199

== ENCOUNTER 2021-01-17 08:21 | Emergency (ER) | payer OTHER, SELFPAY ==
--- NOTE | ~2021-01-17 | XR_ITS ---
[[id number] ] INDICATION: Left rib pain after fall TECHNIQUE: Frontal projection of the upper left ribs, frontal projection of the lower left ribs, obli que projection of all the left ribs, frontal inspiratory chest x-ray for interpretation. FINDINGS: There are no displaced rib fractures identified. There are no soft tissue abnormality see n. The lungs are clear. IMPRESSION: 1:No displaced rib fractures. Reviewed, dictated and finalized at location A.
[2021-01-17 08:32] VITALS: BP 140/89; PULSE 121; RESP 18; TEMP 36.6; O2SAT 97
--- NOTE | 2021-01-17 08:36 | ED.FALL ---
HPI - Fall General Chief Complaint: Back Pain/Injury Stated Complaint: BACK PAIN Time Seen by Provider: 01/17/21 08:32 Source: patient and RN notes reviewed Mode of arrival: ambulatory Limitations: no limitations History of Present Illness HPI Narrative: 35-year-old male presents to the [facility] with complaints of left-sided rib pain after slipping and falling yesterday at work. Patient states that his slip resistant shoes were not slip resistant and he slipped and fell landing on the left side. Denies hitting head. No loss of consciousness. Denies dizziness. No chest pain or abdominal pain. Patient states I really need a work note. I need to return tomorrow. complaint: fall Related Data Home Medications Medication Instructions Recorded Confirmed amlodipine 10 mg PO DAILY 12/25/19 12/30/19 levothyroxine 50 mcg PO DAILY 12/25/19 12/30/19 lisinopril 40 mg PO DAILY 12/25/19 12/30/19 Allergies Allergy/AdvReac Type Severity Reaction Status Date / Time No Known Allergies Allergy Verified 09/28/20 19:03 Review of Systems Review of Systems: All systems reviewed & are unremarkable except as noted in HPI and below Constitutional: Constitutional: Reports no additional constitutional complaints, Denies chills and Denies fever(s) Eyes: Eyes: Reports no additional eye complaints ENT: Reports system reviewed and no additional complaints, except as documented, Denies vertigo, Denies dizziness, Denies epistaxis, Denies nasal congestion and Denies sore throat Cardiovascular: Cardiovascular: Reports no additional cardiovascular complaints and Denies chest pain Respiratory: Respiratory: Reports no additional respiratory complaints, Denies cough and Denies dyspnea Gastrointestinal: Gastrointestinal: Reports no additional gastrointestinal complaints, Denies abdominal pain, Denies nausea and Denies vomiting Musculoskeletal: Musculoskeletal: Reports as per HPI (left posterior and lateral lower rib pain) Integumentary/Breasts: Skin/Breast: Reports system reviewed and no additional complaints, except as docu, Denies erythema and Denies rash Neurologic: Reports system reviewed and no additional complaints, except as documented, Denies confusion, Denies vertigo, Denies dizziness, Denies syncope, Denies headache(s), Denies focal weakness and Denies numbness Psychiatric: Psychiatric: Reports no additional psychiatric complaints Allergic/Immunologic: Allergic/Immunologic: Reports no additional allergic/immunologic complaints PMFSH Past Medical History Medical History Hypertension Hypothyroidism Obesity Surgical History Surgical History (Updated 01/17/21 @ 08:37 by Carolyn Adler) History of appendectomy Family History Family History Grandparent Family history of pancreatic cancer Family history of thyroid disease Diabetes mellitus Mother Family history of thyroid disease Family history of multiple sclerosis Family history of lupus erythematosus Father Family history of alcoholism Family history of lupus erythematosus Other Hypertension Social History Social History Smoking status: Never smoker Second hand tobacco smoke exposure: Yes Alcohol intake: current Drinks per week: 2 Substance use: never Substance use type: does not use Spiritual care concerns: No Comments At the time of my signature, I reviewed and agree with the nursing past medical, surgical, social, and family history. There is no relevant family history pertinent to the patient complaint. Exam Const: General: no acute distress and alert Nutritional Appearance: well nourished and obese morbidly obese Orientation/consciousness: patient oriented x3 HENMT: Head: normal to inspection Ears: external ears normal Eyes: Pupils: Equal, round and reactive pupils present Neck:
== END 2021-01-17 09:18 | disposition home or self-care (01) ==
PROVIDERS: Emergency Provider Nurse Practitioner; PCP Physician Assistant
DX: S20.212A Contusion of left front wall of thorax, initial encounter (principal); W01.0XXA Fall on same level from slipping, tripping and stumbling without subsequent striking against object, initial encounter; I10 Essential (primary) hypertension; E03.9 Hypothyroidism, unspecified; E66.9 Obesity, unspecified; Z68.42 Body mass index [BMI] 45.0-49.9, adult
CPT/HCPCS: 71101; 99213; G0463

== ENCOUNTER 2021-07-14 12:55 | Emergency (ER) | payer OTHER, SELFPAY ==
--- NOTE | ~2021-07-14 | XR_ITS ---
XR foot LT min 3V DATE: 07/14/2021 13:30 INDICATION: Dropped heavy object on the great toe last night. Bruising. Pain. TECHNIQUE: 4 views of left foot COMPARISON: None FINDINGS: There is a nondisplaced intra-articular fracture of the lateral aspect of the base of the d istal phalanx of the great toe. No other fracture or dislocation, periosteal reaction or bone destruction. Plantar calcaneal and slight posterior calcaneal enthesopathy. IMPRESSION: Nondisplaced intra-articular fracture at the lateral aspect of the base of the distal pha lanx of the great toe Reviewed, dictated and finalized at location B. DRIVER IMPRESSION: Nondisplaced intra-articular fracture at the lateral aspect of the base of the distal phalanx of the great toe
[2021-07-14 12:56] VITALS: BP 151/101; PULSE 100; TEMP 36.8; O2SAT 96
--- NOTE | 2021-07-14 13:06 | ED_ITS ---
HPI - Extremity Injury (Lower) General Chief Complaint: Extremity Injury, Lower Stated Complaint: foot pain Time Seen by Provider: 07/14/21 13:06 Related Data Home Medications Medication Instructions Recorded Confirmed amlodipine 10 mg PO DAILY 12/25/19 12/30/19 levothyroxine 50 mcg PO DAILY 12/25/19 12/30/19 lisinopril 40 mg PO DAILY 12/25/19 12/30/19 Allergies Allergy/AdvReac Type Severity Reaction Status Date / Time No Known Allergies Allergy Verified 07/14/21 13:00 [facility] Past Medical History Medical History Hypertension Hypothyroidism Obesity Surgical History Surgical History (Updated 01/17/21 @ 08:37 by Carolyn Adler) History of appendectomy Family History Family History Grandparent Family history of pancreatic cancer Family history of thyroid disease Diabetes mellitus Mother Family history of thyroid disease Family history of multiple sclerosis Family history of lupus erythematosus Father Family history of alcoholism Family history of lupus erythematosus Other Hypertension Social History Social History Smoking status: Never smoker Second hand tobacco smoke exposure: Yes Alcohol intake: current Drinks per week: 2 Substance use: never Substance use type: does not use Spiritual care concerns: No Course Vital Signs Vital signs: Vital Signs Temperature 36.8 C 07/14/21 12:56 Pulse Rate 100 07/14/21 12:56 Blood Pressure 151/101 H 07/14/21 12:56 Pulse Oximetry 96 07/14/21 12:56 Temperature 36.8 C 07/14/21 12:56 Pulse Rate 100 07/14/21 12:56 Blood Pressure 151/101 H 07/14/21 12:56 Pulse Oximetry 96 07/14/21 12:56 Discharge Plan Discharge Prescriptions: No Action famotidine [Pepcid] 40 mg tablet 40 mg PO DAILY Qty: 30 RF: 0 ondansetron 4 mg tablet,disintegrating 4 mg PO Q6H PRN (Reason: nausea and vomiting) Qty: 20 RF: 0 dicyclomine 10 mg capsule 10 mg PO BID Qty: 14 RF: 0 amlodipine 5 mg tablet 10 mg PO DAILY RF: 0 levothyroxine 50 mcg tablet 50 mcg PO DAILY RF: 0 lisinopril 40 mg tablet 40 mg PO DAILY RF: 0 metoprolol succinate 50 mg Tablet Extended Release 24 Hr 50 mg PO QAM Qty: 30 RF: 0
--- NOTE | 2021-07-14 13:58 | PC.NURSE ---
patient refused crutches as he has a set at home
--- NOTE | 2021-07-14 14:00 | ED.GENADULT ---
HPI - General Adult General Chief complaint: Extremity Injury, Lower Stated complaint: foot pain Time Seen by Provider: 07/14/21 13:06 Source: patient and RN notes reviewed Mode of arrival: ambulatory Limitations: no limitations History of Present Illness HPI narrative: Patient a 35-year-old male who presents to emergency department for evaluation of left great toe pain that began after dropping an object on his toe while at work today just prior to arrival presents with bruise swelling tender toe worse with weightbearing and activity denies other injuries or complaints has not taken anything for some Related Data Home Medications Medication Instructions Recorded Confirmed amlodipine 10 mg PO DAILY 12/25/19 12/30/19 levothyroxine 50 mcg PO DAILY 12/25/19 12/30/19 lisinopril 40 mg PO DAILY 12/25/19 12/30/19 Allergies Allergy/AdvReac Type Severity Reaction Status Date / Time No Known Allergies Allergy Verified 07/14/21 13:00 Review of Systems Review of Systems: CONSTITUTIONAL: Denies fever, chills, or sweats. SKIN: Positive for bruising and swelling MUSCULOSKELETAL: D positive for bruising and swelling of the left great toe NEUROLOGIC: Denies numbness, or weakness. [facility] Past Medical History Medical History Hypertension Hypothyroidism Obesity Surgical History Surgical History History of appendectomy Family History Family History Grandparent Family history of pancreatic cancer Family history of thyroid disease Diabetes mellitus Mother Family history of thyroid disease Family history of multiple sclerosis Family history of lupus erythematosus Father Family history of alcoholism Family history of lupus erythematosus Other Hypertension Social History Social History Smoking status: Never smoker Second hand tobacco smoke exposure: Yes Alcohol intake: current Drinks per week: 2 Substance use: never Substance use type: does not use Spiritual care concerns: No Exam Narrative: GENERAL: Well-appearing, well-nourished, and in no acute distress. HEAD: Normocephalic, atraumatic. EYES: PERRLA and EOMI. ENT: Nares clear, no rhinorrhea or epistaxis. Mucous membranes moist. EXTREMITIES: Tenderness with bruising and swelling of the left great toe remainder of foot nontender SKIN: Warm, dry, no rash. NEURO: Alert and oriented x3. Neurovascularly intact. Capillary refill less than 2 seconds PSYCH: Normal mood and affect. Course Course Emergency Course: Patient was found to have broken toe will be discharged home with outpatient follow-up no signs of neurovascular or neurological compromise he is aware of case findings treatment plan and diagnosis ABCs and vital signs intact and stable Vital Signs Vital signs: Vital Signs Temperature 98.2 F 07/14/21 12:56 Pulse Rate 100 07/14/21 12:56 Blood Pressure 151/101 H 07/14/21 12:56 Pulse Oximetry 96 07/14/21 12:56 Temperature 98.2 F 07/14/21 12:56 Pulse Rate 100 07/14/21 12:56 Blood Pressure 151/101 H 07/14/21 12:56 Pulse Oximetry 96 07/14/21 12:56 Procedures Other Procedure Procedure 1: Other Procedure: Patient with fractured phalanx Pernell tape placed in postop shoe notes that he had crutches at home he will be discharged home given indications for outpatient follow-up and provided with reasons to return Medical Decision Making MDM Narrative Medical decision making narrative: Patients injury or pain is consistent with musculoskeletal etiology. No signs of neurological or vascular compromise on exam. Compartments and tisues are soft without signs of compartment syndrome. Pain is felt appropriate for further evaluation on an outpatient basis. Vital Signs Vital Signs: Vital Signs [place]
== END 2021-07-14 14:13 | disposition home or self-care (01) ==
PROVIDERS: Emergency Provider Emergency Medicine; PCP Physician Assistant
DX: S92.425A Nondisplaced fracture of distal phalanx of left great toe, initial encounter for closed fracture (principal); I10 Essential (primary) hypertension; E03.9 Hypothyroidism, unspecified; E66.9 Obesity, unspecified; Z68.42 Body mass index [BMI] 45.0-49.9, adult; Z77.22 Contact with and (suspected) exposure to environmental tobacco smoke (acute) (chronic); W20.8XXA Other cause of strike by thrown, projected or falling object, initial encounter
CPT/HCPCS: 73630; 99284

== ENCOUNTER 2021-07-17 12:08 | Emergency (ER) | payer OTHER, SELFPAY ==
--- NOTE | ~2021-07-17 | US_ITS ---
US venous doppler [facility] DATE: 07/17/2021 13:52 INDICATION: Calf pain, elevated d-dimer TECHNIQUE: Real-time and color flow imaging and Doppler analysis of the veins of the left lower extre mity COMPARISON: 12/30/2019 bilateral venous duplex examination of the lower extremities FINDINGS: The left greater saphenous vein is patent. There is spontaneous and phasic flow and normal augmentation and color flow signal and normal compression of the deep veins of the left leg. IMPRESSION: No evidence of deep venous thrombosis of left leg Reviewed, dictated and finalized at Location A. Reviewed, dictated and finalized at location B. MARKER
--- NOTE | ~2021-07-17 | XR_ITS ---
EXAMINATION: XR tibia fibula LT 2V INDICATION: Left leg pain TECHNIQUE: Two views of the left tibia and fibula are obtained on four radiographs. COMPARISON: None available FINDINGS: Bone alignment is normal. There is no fracture. The joint spaces are maintained. Posterior and plantar calcaneal enthesophytes are noted. An exostosis projects from the lateral cortex of the p roximal tibia. IMPRESSION: 1. No acute osseous abnormality. Reviewed, dictated and finalized at location A. [employer]
[2021-07-17 12:12] VITALS: BP 222/132; PULSE 126; RESP 16; TEMP 36.3; O2SAT 96
--- NOTE | 2021-07-17 12:37 | ED.LOWEXIN ---
HPI - Extremity Injury (Lower) General Chief Complaint: Extremity Injury, Lower <Luanne Arguello APRN - Last Filed: 07/17/21 13:35> Stated Complaint: possible DVT <Luanne Arguello APRN - Last Filed: 07/17/21 13:35> Time Seen by Provider: 07/17/21 12:21 <Luanne Arguello APRN - Last Filed: 07/17/21 13:35> Source: patient <Luanne Arguello APRN - Last Filed: 07/17/21 13:35> Mode of arrival: other (on crutches) <Luanne Arguello APRN - Last Filed: 07/17/21 13:35> Limitations: no limitations <Luanne Arguello APRN - Last Filed: 07/17/21 13:35> History of Present Illness HPI Narrative: 35 year old male presesnts today with complaints of increased pain to left leg and swelling. Patient seen here on Wednesday with injury to left foot. Patient dropped heavy object on the left foot. Patient diagnosed with Nondisplaced intra-articular fracture at the lateral aspect of the base of the distal phalanx of the great toe. Patient discharged with surgical shoe and on crutches. Patient states he noticed swelling to the left leg and calf pain today. He called his primary and was sent here. Patient using ibuprofen at home with some releif. Pain currently 5/10 and tolerable. <Luanne Arguello APRN - Last Filed: 07/17/21 13:35> Related Data Home Medications: Home Medications Medication Instructions Recorded Confirmed amlodipine 10 mg PO DAILY 12/25/19 12/30/19 levothyroxine 50 mcg PO DAILY 12/25/19 12/30/19 lisinopril 40 mg PO DAILY 12/25/19 12/30/19 <Luanne Arguello APRN - Last Filed: 07/17/21 13:35> Allergies/Adverse Reactions: Allergies Allergy/AdvReac Type Severity Reaction Status Date / Time No Known Allergies Allergy Verified 07/14/21 13:00 <Luanne Arguello APRN - Last Filed: 07/17/21 13:35> Review of Systems Constitutional: Constitutional: Reports as per HPI and Reports no additional constitutional complaints <Luanne Arguello APRN - Last Filed: 07/17/21 13:35> Cardiovascular: Cardiovascular: Reports no additional cardiovascular complaints <Luanne Arguello SENIOR NET DEVELOPER Last Filed: 07/17/21 13:35> Respiratory: Respiratory: Reports no additional respiratory complaints <Luanne Arguello Last Filed: 07/17/21 13:35> Gastrointestinal: Gastrointestinal: Reports no additional gastrointestinal complaints <Luanne Arguello SENIOR NET DEVELOPER - Last Filed: 07/17/21 13:35> Musculoskeletal: Musculoskeletal: Reports as per HPI <Luanne Arguello Last Filed: 07/17/21 13:35> PMF Past Medical History Medical History: Medical History Hypertension Hypothyroidism Obesity <Luanen Arguello Last Filed: 07/17/21 13:35> Surgical History Surgical History: Surgical History History of appendectomy <Luanne Arguello SENIOR NET DEVELOPER Last Filed: 07/17/21 13:35> Family History Family History: Family History Grandparent Family history of pancreatic cancer Family history of thyroid disease Diabetes mellitus Mother Family history of thyroid disease Family history of multiple sclerosis Family history of lupus erythematosus Father Family history of alcoholism Family history of lupus erythematosus Other Hypertension <Luanne Arguello SENIOR NET DEVELOPER Last Filed: 07/17/21 13:35> Social History Social History: Social History Smoking status: Never smoker Second hand tobacco smoke exposure: Yes Alcohol intake: current Drinks per week: 2 Substance use: never Substance use type: does not use Spiritual care concerns: No <Luanne Arguello APRN - Last Filed: 07/17/21 13:35> Exam Const: General: healthy appearing and no acute distress <Luanne Arguello Last Filed: 07/17/21 13:35> Nutritional Appearance: obese <Luanne Arguello - Last Fi
[2021-07-17 12:52] LABS: Basophils Absolute Auto 0.1 K/mm3 (0.0-0.1); Basophils Percent Auto 0.5 % (0.2-1.2); Hematocrit 44.8 % (42.0-52.0); Hemoglobin 15.2 g/dL (14.0-18.0); Immature Granulocyte Absolute 0.02 K/mm3 (0.00-0.031); Immature Granulocyte Percent A 0.2 % (0-0.5); Lymphocytes Absolute Auto 2.88 K/mm3 (0.9-3.2); Lymphocytes Percent Auto 30.3 % (18.3-44.2); Mean Corpuscular HGB Conc 33.9 g/dl (32-36); Mean Corpuscular Hemoglobin 28.4 pg (26-34); Mean Corpuscular Volume 83.7 fl (80-100); Mean Platelet Volume 8.4 fl (7.4-10.4); Monocytes Absolute Auto 0.5 K/mm3 (0.1-0.6); Monocytes Percent Auto 5.7 % (2.6-8.5); Neutrophils Percent Auto 63.3 % (45.5-73.1); Platelet Count Result 309 k/mm3 (150-375); Red Blood Count 5.35 M/mm3 (4.6-6.20); Red Cell Distribution Width 13.9 % (11.5-14.5); White Blood Count 9.5 K/mm3 (4.5-10.0)
[2021-07-17 13:06] LABS: Prothrombin Time 12.9 Seconds (11.1-14.7)
[2021-07-17 13:07] LABS: Partial Thromboplastin Time 26.2 SECONDS (22.3-36.8)
[2021-07-17 13:23] LABS: D Dimer 5.57 ug/mL (<0.48)
[2021-07-17] MEDS: hydrALAZINE HCL 20 MG/ML VIAL 10 MG IV PUSH (13:26)
[2021-07-17 13:33] VITALS: BP 145/98; PULSE 107; RESP 16; TEMP 36.4; O2SAT 95
[2021-07-17 13:54] LABS: Alanine Aminotransferase 55 U/L (4-50); Albumin Level 4.9 g/dL (3.5-5.1); Alkaline Phosphatase 88 U/L (38-126); Anion Gap 17 mmol/L (8-16); Aspartate Amino Transferase 81 U/L (17-59); Bilirubin,Total 0.6 mg/dL (0.2-1.3); Blood Urea Nitrogen 11 mg/dL (9-20); Calcium 8.6 mg/dL (8.4-10.2); Carbon Dioxide 20 mmol/L (22-30); Chloride 106 mmol/L (98-107); Estimated CRCL calculation 139 ml/min; Estimated Glomerular Filt Rate > 60; Glucose 119 mg/dL (65-110); Potassium 3.7 mmol/L (3.4-5.0); Sodium 143 mmol/L (137-145)
[2021-07-17 14:39] VITALS: BP 145/78; PULSE 101; RESP 16; TEMP 36.6; O2SAT 96
== END 2021-07-17 14:38 | disposition home or self-care (01) ==
PROVIDERS: Nurse Practitioner Family; Emergency Provider Emergency Medicine; PCP Physician Assistant
DX: M79.605 Pain in left leg (principal); I10 Essential (primary) hypertension; E03.9 Hypothyroidism, unspecified
CPT/HCPCS: 36415; 73590; 80053; 85025; 85380; 85610; 85730; 93971; 96374; 99284; J0360

== ENCOUNTER 2021-09-11 11:31 | Emergency (ER) | payer OTHER, SELFPAY ==
--- NOTE | ~2021-09-11 | CT_ITS ---
EXAMINATION: CT abdomen pelvis w con EXAM DATE: 09/11/2021 13:10 INDICATION: Nausea vomiting, epigastric pain. Symptoms 3 days. TECHNIQUE: Spiral CT of the abdomen and pelvis was performed following intravenous injection of 100 m L Omnipaque 350. Axial, coronal and sagittal images of the abdomen and pelvis were reviewed. The do se-length product (DLP) for this examination was 1668.74 mGy-cm. The exposure was tailored according to patient size (auto mA exposure control), and iterative reconstruction (ASIR) was used as addition al dose reduction technique. There is no prior study for comparison. FINDINGS: The liver, spleen, adrenal glands and pancreas are unremarkable. Gallbladder is unremarkab le. No biliary obstruction. Portal and splenic veins are patent. Kidneys enhance symmetrically. T here is no hydronephrosis. Punctate right mid calyceal stone. The prostate is unremarkable. The bob dder is unremarkable. There is no retroperitoneal or pelvic lymphadenopathy. The appendix is not positively visualized. There is no pericecal inflammatory change to suggest appe ndicitis. The stomach and small bowel are unremarkable. There is expected amount of colonic stool. No free intraperitoneal gas. The heart is normal in size. There are no pericardial or pleural e ffusions. The lung bases are unremarkable. There are no osteoblastic or osteolytic lesions identifi ed. IMPRESSION: 1. Punctate right nephrolithiasis. 2. No acute abdominal or pelvic findings. Reviewed, dictated and finalized at location B.
[2021-09-11 11:44] VITALS: BP 122/83; PULSE 97; RESP 16; TEMP 36.6; O2SAT 95
--- NOTE | 2021-09-11 11:59 | ED.NAVMDI ---
HPI - Nausea/Vomiting/Diarrhea General Chief complaint: Nausea/Vomiting/Diarrhea Stated complaint: vomiting blood Time Seen by Provider: 09/11/21 11:39 History of Present Illness HPI Narrative: 35-year-old male presents the emergency room with complaints of nausea and vomiting since yesterday. Nausea vomiting is associated with left upper quadrant stabbing pain. Patient states on 2 occasions he noted streaks of blood in his vomitus. Patient has a history of GERD. Denies fever. Related Data Home Medications Medication Instructions Recorded Confirmed amlodipine 10 mg PO DAILY 12/25/19 12/30/19 levothyroxine 50 mcg PO DAILY 12/25/19 12/30/19 lisinopril 40 mg PO DAILY 12/25/19 12/30/19 Allergies Allergy/AdvReac Type Severity Reaction Status Date / Time No Known Allergies Allergy Verified 09/11/21 12:23 Review of Systems Review of Systems: CONSTITUTIONAL: Denies fever, chills, or sweats. EYES: Denies visual changes, redness, or discharge. ENT: Denies rhinorrhea, congestion, sore throat, or otalgia. CARDIOVASCULAR: Denies chest pain, palpitations, or edema. RESPIRATORY: Denies cough or dyspnea. GASTROINTESTINAL: Reports left upper quadrant abdominal tenderness, vomiting GENITOURINARY: Denies dysuria or hematuria. SKIN: Denies rash or itching. MUSCULOSKELETAL: Denies back pain, joint pain, or myalgia. NEUROLOGIC: Denies headache, numbness, dizziness, or weakness. PSYCHIATRIC: Denies anxiety or depression. [facility] Past Medical History Medical History Hypertension Hypothyroidism Obesity Surgical History Surgical History History of appendectomy Family History Family History Grandparent Family history of pancreatic cancer Family history of thyroid disease Diabetes mellitus Mother Family history of thyroid disease Family history of multiple sclerosis Family history of lupus erythematosus Father Family history of alcoholism Family history of lupus erythematosus Other Hypertension Social History Social History Smoking status: Never smoker Second hand tobacco smoke exposure: Yes Alcohol intake: current Drinks per week: 2 Substance use: never Substance use type: does not use Spiritual care concerns: No Exam Narrative: GENERAL: Well-appearing, well-nourished, obese and in no acute distress. HEAD: Normocephalic, atraumatic. EYES: PERRLA and EOMI. ENT: Nares clear, no rhinorrhea or epistaxis. Mucous membranes moist. NECK: Supple. No adenopathy or masses. No carotid bruits or JVD CHEST: Clear to auscultation. No respiratory distress. No wheezes rales or rhonchi HEART: Regular rate and rhythm. No murmur heard. Normal peripheral pulses. ABDOMEN: Soft, left upper quadrant tenderness, nondistended, normal active bowel sounds. EXTREMITIES: Normal range of motion. No edema. SKIN: Warm, dry, no rash. NEURO: No focal deficits. Alert and oriented x3. PSYCH: Normal mood and affect. Course Vital Signs Vital signs: Vital Signs Temperature 36.6 C 09/11/21 11:44 Pulse Rate 97 09/11/21 11:44 Respiratory Rate 16 09/11/21 11:44 Blood Pressure 122/83 09/11/21 11:44 Pulse Oximetry 95 09/11/21 11:44 Temperature 36.6 C 09/11/21 11:44 Pulse Rate 97 09/11/21 11:44 Respiratory Rate 16 09/11/21 11:44 Blood Pressure 122/83 09/11/21 11:44 Pulse Oximetry 95 09/11/21 11:44 MDM - Nausea/Vomiting/Diarrhea MDM Narrative Medical decision making narrative: 35-year-old male presented to emergency room with acute onset of vomiting. Patient stated he had blood streaks noted in his vomitus. Denied fever. CBC and CMP were unremarkable. CT scan of his abdomen showed no acute abnormality. Will have patient follow-up with GI for further evaluation. Dif
[2021-09-11] MEDS: SODIUM CHLORIDE 0.9% IV 1,000 ML 999 ML IV CONT ×2 (12:08→12:59)
[2021-09-11] MEDS: ONDANSETRON INJ 4 MG/2 ML VIAL IV PUSH (12:08)
[2021-09-11 12:09] LABS: Basophils Percent Auto 0.5 % (0.2-1.2); Eosinophils Percent Auto 0.2 % (0-4.4); Hematocrit 40.8 % (42.0-52.0); Hemoglobin 13.7 g/dL (14.0-18.0); Immature Granulocyte Absolute 0.01 K/mm3 (0.00-0.031); Immature Granulocyte Percent A 0.2 % (0-0.5); Lymphocytes Absolute Auto 1.84 K/mm3 (0.9-3.2); Lymphocytes Percent Auto 44.9 % (18.3-44.2); Mean Corpuscular HGB Conc 33.6 g/dl (32-36); Mean Corpuscular Hemoglobin 29.1 pg (26-34); Mean Corpuscular Volume 86.8 fl (80-100); Mean Platelet Volume 12.2 fl (7.4-10.4); Monocytes Absolute Auto 0.5 K/mm3 (0.1-0.6); Monocytes Percent Auto 13.2 % (2.6-8.5); Neutrophils Absolute Auto 1.7 K/mm3 (1.3-6.7); Platelet Count Result 235 k/mm3 (150-375); Red Cell Distribution Width 14.7 % (11.5-14.5); White Blood Count 4.1 K/mm3 (4.5-10.0)
[2021-09-11 12:17] LABS: Alanine Aminotransferase 94 U/L (4-50); Albumin Level 4.2 g/dL (3.5-5.1); Alkaline Phosphatase 57 U/L (38-126); Anion Gap 11 mmol/L (8-16); Aspartate Amino Transferase 109 U/L (17-59); Bilirubin,Total 0.2 mg/dL (0.2-1.3); Blood Urea Nitrogen 6 mg/dL (9-20); Calcium 7.9 mg/dL (8.4-10.2); Carbon Dioxide 28 mmol/L (22-30); Chloride 108 mmol/L (98-107); Estimated CRCL calculation 175 ml/min; Estimated Glomerular Filt Rate > 60; Glucose 123 mg/dL (65-110); Potassium 3.5 mmol/L (3.4-5.0); Sodium 147 mmol/L (137-145)
[2021-09-11 12:24] VITALS: BP 122/70; PULSE 91; RESP 16; O2SAT 97
[2021-09-11 12:27] LABS: INR 1.1; Prothrombin Time 13.7 Seconds (11.1-14.7)
[2021-09-11 12:28] LABS: Partial Thromboplastin Time 25.9 SECONDS (22.3-36.8)
[2021-09-11] MEDS: PANTOPRAZOLE SODIUM IV 40 MG VIAL IV PUSH (12:57)
--- NOTE | 2021-09-11 13:02 | PC.NURSE ---
Pt to CT via stretcher
[2021-09-11 13:52] VITALS: BP 122/83; PULSE 71; RESP 16; O2SAT 94
== END 2021-09-11 14:11 | disposition home or self-care (01) ==
PROVIDERS: Emergency Provider Nurse Practitioner Family; PCP Physician Assistant
DX: R11.2 Nausea with vomiting, unspecified (principal); R10.12 Left upper quadrant pain; K21.9 Gastro-esophageal reflux disease without esophagitis; I10 Essential (primary) hypertension; E03.9 Hypothyroidism, unspecified; E66.9 Obesity, unspecified; Z68.41 Body mass index [BMI] 40.0-44.9, adult; Z77.22 Contact with and (suspected) exposure to environmental tobacco smoke (acute) (chronic); N20.0 Calculus of kidney
CPT/HCPCS: 36415; 74177; 80053; 85025; 85610; 85730; 96361; 96374; 96375; 99284; C9113; J2405; J7030; Q9967

== ENCOUNTER 2021-12-23 14:24 | Emergency (ER) | payer OTHER, SELFPAY ==
[2021-12-23 14:33] VITALS: BP 150/122; PULSE 113; RESP 16; TEMP 36.7; O2SAT 99
--- NOTE | 2021-12-23 14:41 | ED.GENADULT ---
HPI - General Adult General Chief complaint: Unspecified Stated complaint: nose bleed/yan Time Seen by Provider: 12/23/21 14:54 Source: patient and RN notes reviewed Mode of arrival: ambulatory Limitations: no limitations History of Present Illness HPI narrative: 36-year-old male presented for multiple complaints including headache, nausea and vomiting, diarrhea, body aches, fevers and chills. Vomiting started this morning, none for about 4 hours. Feeling bad for 2 days. Endorses mother tested positive for COVID last week. He has not boosted for COVID. He is not taking anything for symptoms. Also reports intermittent nose bleeding, states last time was this morning. Denies chest pain, palpitations, shortness of breath, hematemesis. Also states he has been out of hypertension medication for one week. Related Data Home Medications Medication Instructions Recorded Confirmed levothyroxine 50 mcg tablet 50 mcg PO DAILY 12/25/19 12/23/21 Allergies Allergy/AdvReac Type Severity Reaction Status Date / Time No Known Allergies Allergy Verified 12/23/21 14:39 Review of Systems Review of Systems: CONSTITUTIONAL: Endorses malaise EYES: Denies visual changes, redness, or discharge ENT: Reports rhinorrhea, congestion, denies sinus pain, otalgia, sore throat CARDIOVASCULAR: Denies chest pain, palpitations, edema RESPIRATORY: Reports cough, post nasal drainage. Denies dyspnea GASTROINTESTINAL: Denies abdominal pain SKIN: Denies rash or itching MUSCULOSKELETAL: Endorses myalgia NEUROLOGIC: Denies headache PMFSH Past Medical History Medical History Hypertension Hypothyroidism Obesity Surgical History Surgical History History of appendectomy Family History Family History Grandparent Family history of pancreatic cancer Family history of thyroid disease Diabetes mellitus Mother Family history of thyroid disease Family history of multiple sclerosis Family history of lupus erythematosus Father Family history of alcoholism Family history of lupus erythematosus Other Hypertension Social History Social History Smoking status: Never smoker Second hand tobacco smoke exposure: Yes Alcohol intake: current Drinks per week: 2 Substance use: never Substance use type: does not use Spiritual care concerns: No Exam Narrative: GENERAL: Ill-appearing, nontoxic EYES: conjunctivae clear ENT: Mucous membranes moist. TMs pearly li with dull light reflex bilaterally; no tragal tenderness. CHEST: Clear to auscultation, breath sounds equal. HEART: tachycardic, Regular rhythm. No murmur heard. SKIN: Warm, dry, no rash. NEURO: Alert and oriented x3. PSYCH: Normal mood and affect Course Course Emergency Course: Patient is aware of diagnosis, understands and agrees to treatment plan. Anticipatory guidance given. Patient agrees to follow-up as directed and is aware of reasons to seek care at the emergency department. Portions of this record may have been created with voice recognition software Level of Care: Express Care Visit Vital Signs Vital signs: Vital Signs Temperature 98.1 F 12/23/21 14:33 Pulse Rate 113 H 12/23/21 14:33 Respiratory Rate 16 12/23/21 14:33 Blood Pressure 150/122 H 12/23/21 14:33 Pulse Oximetry 99 12/23/21 14:33 Oxygen Delivery Room Air 12/23/21 14:33 Temperature 98.1 F 12/23/21 14:33 Pulse Rate 113 H 12/23/21 14:33 Respiratory Rate 16 12/23/21 14:33 Blood Pressure 150/122 H 12/23/21 14:33 Pulse Oximetry 99 12/23/21 14:33 Oxygen Delivery Room Air 12/23/21 14:33 reviewed Medical Decision Making MDM Narrative Medical decision making narrative: Pt reported nosebleed today, however PE does not reflect scab dried
[2021-12-23] MEDS: ONDANSETRON HCL ODT 4 MG TABLET SUBLINGUAL (15:02)
== END 2021-12-23 15:50 | disposition home or self-care (01) ==
PROVIDERS: Emergency Provider Nurse Practitioner Family; PCP Physician Assistant
DX: B34.9 Viral infection, unspecified (principal); I10 Essential (primary) hypertension; Z20.822 Contact with and (suspected) exposure to COVID-19; E03.9 Hypothyroidism, unspecified; E66.9 Obesity, unspecified; Z68.41 Body mass index [BMI] 40.0-44.9, adult
CPT/HCPCS: 87426; 99213; A9270; C9803; G0463

== ENCOUNTER 2022-03-20 17:10 | Emergency (ER) | payer OTHER, SELFPAY ==
[2022-03-20 17:21] VITALS: BP 157/119; PULSE 132; RESP 20; TEMP 37.7; O2SAT 99
--- NOTE | 2022-03-20 17:33 | ED.NAVMDI ---
HPI - Nausea/Vomiting/Diarrhea General Chief complaint: Nausea/Vomiting/Diarrhea Stated complaint: Vomiting, Nausea, Headache, Fever Time Seen by Provider: 03/20/22 17:35 Source: patient, RN notes reviewed and old records reviewed Mode of arrival: ambulatory Limitations: no limitations History of Present Illness HPI Narrative: 36-year-old male presents to the [facility] with complaints of vomiting, nausea, headache fever since Wednesday States that his girlfriend had a viral issue very similar to what he has. Related Data Home Medications Medication Instructions Recorded Confirmed famotidine 20 mg tablet (Heartburn 20 mg DAILY 03/20/22 03/20/22 Relief (famotidine)) metoprolol tartrate 25 mg tablet 10 mg DAILY 03/20/22 03/20/22 Allergies Allergy/AdvReac Type Severity Reaction Status Date / Time No Known Allergies Allergy Verified 03/20/22 17:30 Review of Systems Review of Systems: All systems reviewed & are unremarkable except as noted in HPI and below Constitutional: Constitutional: Reports no additional constitutional complaints, Denies chills and Denies fever(s) Eyes: Eyes: Reports no additional eye complaints ENT: Reports system reviewed and no additional complaints, except as documented Cardiovascular: Cardiovascular: Reports no additional cardiovascular complaints Respiratory: Respiratory: Reports no additional respiratory complaints Gastrointestinal: Gastrointestinal: Reports as per HPI, Denies abdominal pain, Reports diarrhea, Reports nausea and Reports vomiting Musculoskeletal: Musculoskeletal: Reports no additional musculoskeletal complaints Integumentary/Breasts: Skin/Breast: Reports system reviewed and no additional complaints, except as docu Neurologic: Reports system reviewed and no additional complaints, except as documented Psychiatric: Psychiatric: Reports no additional psychiatric complaints Allergic/Immunologic: Allergic/Immunologic: Reports no additional allergic/immunologic complaints [facility] Past Medical History Medical History Hypertension Hypothyroidism Obesity Surgical History Surgical History History of appendectomy Family History Family History Grandparent Family history of pancreatic cancer Family history of thyroid disease Diabetes mellitus Mother Family history of thyroid disease Family history of multiple sclerosis Family history of lupus erythematosus Father Family history of alcoholism Family history of lupus erythematosus Other Hypertension Social History Social History Smoking status: Never smoker Second hand tobacco smoke exposure: Yes Alcohol intake: current Drinks per week: 2 Substance use: never Substance use type: does not use Spiritual care concerns: No Comments At the time of my signature, I reviewed and agree with the nursing past medical, surgical, social, and family history. There is no relevant family history pertinent to the patient complaint. Exam Const: General: healthy appearing, no acute distress, alert and well nourished Nutritional Appearance: well nourished and obese Orientation/consciousness: patient oriented x3 Limitations: no limitations HENMT: Head: normal to inspection Ears: external ears normal, TM's normal bilaterally and EAC's normal Throat: posterior oropharynx normal and uvula midline Eyes: General: appearance normal, both eyes and all related structures Pupils: Equal, round and reactive pupils present Neck: Neck: normal visual inspection, no lymphadenopathy and no meningeal signs Chest: Chest palpation & inspection: normal inspection of the chest Resp: Effort & Inspection: normal respiratory effort and no use of accessory muscles Auscultation: clear to auscultation bilatera
== END 2022-03-20 18:02 | disposition home or self-care (01) ==
PROVIDERS: Emergency Provider Nurse Practitioner; PCP Physician Assistant
DX: K52.9 Noninfective gastroenteritis and colitis, unspecified (principal); Z20.822 Contact with and (suspected) exposure to COVID-19; I10 Essential (primary) hypertension; E03.9 Hypothyroidism, unspecified; E66.9 Obesity, unspecified; Z68.42 Body mass index [BMI] 45.0-49.9, adult
CPT/HCPCS: 87426; 87804; 99213; C9803; G0463

== ENCOUNTER 2023-10-19 09:52 | Emergency (ER) | payer SELFPAY ==
--- NOTE | ~2023-10-19 | CT_ITS ---
Non-contrast CT scan of the Abdomen and Pelvis Clinical indication: Left flank pain Technique: 2.5 mm axial scans were obtained through the abdomen and pelvis without intravenous or or al contrast. Dose reduction technique was used on this scan by utilizing automated exposure control a nd iterative reconstruction technique. The dose-length product (DLP) was 1815.06 mGy-cm. COMPARISON: 09/11/2021 Findings: Images through the lung bases reveal no abnormalities. There is no evidence of renal or ureteral calculi. The kidneys and the ureters are nondilated. The liver, spleen, pancreas, gallbladder, and adrenals appear normal. There is no aortic aneurysm. There is no evidence of bowel obstruction. Images through the pelvis were performed. There is no evidence of ascites or lymphadenopathy. Urinary bladder unremarkable. No pelvic mass seen. Impression: Unremarkable exam. Reviewed, dictated and finalized at [facility]. Impression: Unremarkable exam.
[2023-10-19 09:59] VITALS: BP 177/103; PULSE 82; RESP 18; TEMP 36.7; O2SAT 97
--- NOTE | 2023-10-19 10:00 | ECG_ITS ---
SEE SCANNED COPY FOR CONFIRMED REPORT MTDD
--- NOTE | 2023-10-19 10:01 | ED.BACK ---
HPI - Back Pain/Injury General Chief Complaint: Back Pain/Injury <Dorita Bruno PA-C - Last Filed: 10/19/23 11:09> Stated Complaint: flank pain <NORA Fuller Last Filed: 10/19/23 11:09> Time Seen by Provider: 10/19/23 09:54 <NORA Fuller Last Filed: 10/19/23 11:09> History of Present Illness HPI Narrative: 38-year-old male with history of hypertension presents to emergency department for left flank pain and heartburn for the past 3 days. Patient states that every time he drinks water he develops pain in his left flank he describes as a squeezing and sharp sensation that lasts approximately 5 minutes and resolved. States he also develops heartburn after drinking water in his epigastrium that is burning and last a few minutes and then resolves. States this has never happened before. Denies chest pain or shortness of breath, fever, nausea vomiting, diarrhea, abdominal pain, dysuria or hematuria. No prior abdominal surgeries. No history of kidney stones. <NORA Fuller Last Filed: 10/19/23 11:09> Related Data Home Medications: Home Medications Medication Instructions Recorded Confirmed famotidine 20 mg tablet (Heartburn 20 mg DAILY 03/20/22 03/20/22 Relief (famotidine)) metoprolol tartrate 25 mg tablet 10 mg DAILY 03/20/22 03/20/22 <NORA Fuller Last Filed: 10/19/23 11:09> Allergies/Adverse Reactions: Allergies Allergy/AdvReac Type Severity Reaction Status Date / Time No Known Allergies Allergy Verified 03/20/22 17:30 <NORA Fuller Last Filed: 10/19/23 11:09> Review of Systems Review of Systems: CONSTITUTIONAL: Denies fever, chills, or sweats. EYES: Denies visual changes, redness, or discharge. ENT: Denies rhinorrhea, congestion, sore throat, or otalgia. CARDIOVASCULAR: Denies chest pain, palpitations, or edema. RESPIRATORY: Denies cough or dyspnea. GASTROINTESTINAL: See HPI GENITOURINARY: Denies dysuria or hematuria. SKIN: Denies rash or itching. MUSCULOSKELETAL: See HPI NEUROLOGIC: Denies headache, numbness, or weakness. PSYCHIATRIC: Denies anxiety or depression. <Dorita Bruno PA-C - Last Filed: 10/19/23 11:09> PMFSH Past Medical History Medical History: Medical History Hypertension Hypothyroidism Obesity <Dorita Bruno PA-C - Last Filed: 10/19/23 11:09> Surgical History Surgical History: Surgical History History of appendectomy <Dorita Bruno PA-C - Last Filed: 10/19/23 11:09> Family History Family History: Family History Grandparent Family history of pancreatic cancer Family history of thyroid disease Diabetes mellitus Mother Family history of thyroid disease Family history of multiple sclerosis Family history of lupus erythematosus Father Family history of alcoholism Family history of lupus erythematosus Other Hypertension <Dorita Bruno PA-C - Last Filed: 10/19/23 11:09> Social History Social History: Social History Smoking status: Never smoker Second hand tobacco smoke exposure: Yes Alcohol intake: current Drinks per week: 2 Substance use: never Substance use type: does not use Spiritual care concerns: No <Dorita Bruno PA-C - Last Filed: 10/19/23 11:09> Exam Narrative: GENERAL: Well-appearing, well-nourished, and in no acute distress. HEAD: Normocephalic, atraumatic. EYES: PERRLA and EOMI. ENT: Nares clear, no rhinorrhea or epistaxis. Mucous membranes moist. NECK: Supple. CHEST: Clear to auscultation. No respiratory distress. HEART: Regular rate and rhythm. No murmur heard. Normal peripheral pulses. ABDOMEN: Soft, nontender, nondistended, normal active bowel sounds.
[2023-10-19] MEDS: FAMOTIDINE 20 MG/2 ML VIAL IV PUSH (10:12)
[2023-10-19 10:17] LABS: Appearance Urine Clear (Clear); Bilirubin Urine Negative (Negative); Blood Urine Negative (Negative); Color Urine Yellow (Yellow); Glucose Urine UA Negative (Negative); Ketones Urine Negative (Negative); Leukocyte Esterase Ur Negative LEU/UL (Negative); Nitrate Urine Negative (Negative); Protein Urine Negative (Negative); Specific Grav Ur 1.012 (1.001-1.035); Urobilinogen Urine 0.2 mg/dL (<2.0); pH Urine 5.5 (5.0-9.0)
[2023-10-19 10:18] LABS: Basophils Percent Auto 0.3 % (0.2-1.2); Eosinophils Percent Auto 0.2 % (0-4.4); Hematocrit 42.5 % (42.0-52.0); Hemoglobin 13.8 g/dL (14.0-18.0); Immature Granulocyte Absolute 0.03 K/mm3 (0.00-0.031); Immature Granulocyte Percent A 0.3 % (0-0.5); Lymphocytes Percent Auto 27.9 % (18.3-44.2); Mean Corpuscular HGB Conc 32.5 g/dl (32-36); Mean Corpuscular Hemoglobin 27.5 pg (26-34); Mean Corpuscular Volume 84.7 fl (80-100); Mean Platelet Volume 9.7 fl (7.4-10.4); Monocytes Absolute Auto 0.6 K/mm3 (0.1-0.6); Neutrophils Absolute Auto 5.5 K/mm3 (1.3-6.7); Neutrophils Percent Auto 64.3 % (45.5-73.1); Platelet Count Result 285 k/mm3 (150-375); Red Blood Count 5.02 M/mm3 (4.6-6.20); Red Cell Distribution Width 13.5 % (11.5-14.5); White Blood Count 8.6 K/mm3 (4.5-10.0)
[2023-10-19 10:20] LABS: Add Urine Microscopic? NO
[2023-10-19 10:30] VITALS: BP 133/92; PULSE 82; RESP 16; TEMP 36.6; O2SAT 99
[2023-10-19 10:31] LABS: Alanine Aminotransferase 19 U/L (6-50); Albumin Level 4.6 g/dL (3.5-5.1); Alkaline Phosphatase 68 U/L (38-126); Anion Gap 7 mmol/L (4-12); Aspartate Amino Transferase 28 U/L (17-59); Bilirubin,Total 0.5 mg/dL (0.2-1.3); Blood Urea Nitrogen 15 mg/dL (9-20); Carbon Dioxide 24 mmol/L (22-30); Chloride 105 mmol/L (98-107); Estimated CRCL calculation 147 ml/min; Estimated Glomerular Filt Rate > 60; Glucose 123 mg/dL (65-110); Lipase 517 U/L (23-300); Potassium 3.8 mmol/L (3.4-5.0); Sodium 136 mmol/L (137-145)
[2023-10-19] MEDS: BELLADONNA ALK/PHENOB ELIX 10 ML, MAG HYDROX/ALUMINUM HYD/SIMETH 30 ML, LIDOCAINE HCL 2... PO (11:10)
[2023-10-19 11:15] VITALS: BP 133/90; PULSE 80; RESP 16; TEMP 36.6; O2SAT 100
[2023-10-19] MEDS: lisinopriL 10 MG TABLET 30 MG PO (11:16)
== END 2023-10-19 11:24 | disposition home or self-care (01) ==
PROVIDERS: Emergency Provider Physician Assistant
DX: R10.9 Unspecified abdominal pain (principal); K21.9 Gastro-esophageal reflux disease without esophagitis; I10 Essential (primary) hypertension; E03.9 Hypothyroidism, unspecified; E66.9 Obesity, unspecified; Z68.43 Body mass index [BMI] 50.0-59.9, adult
CPT/HCPCS: 36415; 74176; 80053; 81003; 83690; 85025; 93005; 96367; 99284; A9270